=== PATIENT | female | born 1980 | race Caucasian/White ===

== ENCOUNTER 2019-06-17 06:35 | Observation (INO) | payer SELFPAY ==
[2019-06-17] MEDS ORDERED: Adenocard IV 6 MG/2 ML IV ONE (06:49)
[2019-06-17] MEDS ORDERED: Sodium Chloride 0.9% 1000 ML 1,000 ML ONE ×3 (06:49→08:19)
[2019-06-17] MEDS ORDERED: Sodium Chloride 0.9% 1000 ML 1,000 ML IV STA ×3 (06:57→07:33)
[2019-06-17] MEDS ORDERED: FEVERALL 650 MG PR STA (06:58)
[2019-06-17] MEDS ORDERED: FEVERALL 325 MG ONE (06:59)
[2019-06-17] MEDS ORDERED: Zofran 4 MG/2 ML VIAL ONE ×2 (07:02→20:23)
[2019-06-17] MEDS ORDERED: Zofran 4 MG/2 ML VIAL IV ONE (07:02)
--- NOTE | 2019-06-17 07:41 | ERPHSYRPT ---
- History of Present Illness Time Seen by Provider: 06/17/19 07:36 Historian: patient Exam Limitations: no limitations Patient Subjective Stated Complaint: pt states she has been having intermittent abd apin and diarrhea for last 2 weeks. states she has not been able to eat or drink anything for a while because of the pain and vomiting. has had fever tonight. Triage Nursing Assessment: pt awake, answers questions. oriented x4. respirations nonlabored with lungs cta. abd tender with faint bowel sounds. pt states she is passing flatus. skin hot and dry. heart rate 160 on arrival. no c.o chest pain. Physician History: pt states she has been having intermittent abdominal pain and diarrhea for last 2 weeks. states she has not been able to eat or drink anything for a while because of the pain and vomiting. has had fever tonight. Timing/Duration: week(s) (two weeks) Activities at Onset: none Abdominal Pain Onset Location: generalized abdomen Pain Radiation: no radiation Severity of Pain-Max: severe Severity of Pain-Current: severe Modifying Factors: Improves With: nothing Associated Symptoms: diarrhea, loss of appetite, nausea, vomiting, weakness Hx Tetanus, Diphtheria Vaccination/Date Given: Yes Hx Influenza Vaccination/Date Given: No Hx Pneumococcal Vaccination/Date Given: No Immunizations Up to Date: Yes - Review of Systems Constitutional: No Fever, No Chills Eyes: No Symptoms Ears, Nose, & Throat: No Symptoms Respiratory: No Cough, No Dyspnea Cardiac: No Chest Pain, No Edema, No Syncope Abdominal/Gastrointestinal: Abdominal Pain, Nausea, Vomiting, Diarrhea, Appetite Changes Genitourinary Symptoms: No Dysuria Musculoskeletal: No Back Pain, No Neck Pain Skin: No Rash Neurological: No Dizziness, No Focal Weakness, No Sensory Changes Psychological: No Symptoms Endocrine: No Symptoms All Other Systems: Reviewed and Negative - Past Medical History Pertinent Past Medical History: Yes - Past Surgical History Past Surgical History: Yes Gastrointestinal: Appendectomy, Bowel Surgery Female Surgical History: Hysterectomy Other Surgical History: small bowel repair after appy- states the small bowel was knicked and has to be repaired - Social History Smoking Status: Former smoker Exposure to second hand smoke: No Drug Use: none Patient Lives Alone: No - Female History Hx Last Menstrual Period: hyster Hx Now: No - Nursing Vital Signs Nursing Vital Signs: Initial Vital Signs Temperature 103.2 F 06/17/19 06:55 Pulse Rate 149 H 06/17/19 06:55 Respiratory Rate 26 H 06/17/19 06:55 Blood Pressure 134/74 06/17/19 06:55 O2 Sat by Pulse Oximetry 98 06/17/19 06:55 Pain Scale Pain Intensity 9 - Physical Exam General Appearance: no apparent distress, alert Eye Exam: PERRL/EOMI, eyes nml inspection Ears, Nose, Throat Exam: normal ENT inspection, pharynx normal, moist mucous membranes Neck Exam: normal inspection, non-tender, supple, full range of motion Respiratory Exam: normal breath sounds, lungs clear, No respiratory distress Cardiovascular Exam: regular rate/rhythm, normal heart sounds Gastrointestinal/Abdomen Exam: soft, tenderness, No mass Back Exam: normal inspection, normal range of motion, No CVA tenderness, No vertebral tenderness Extremity Exam: normal inspection, normal range of motion, pelvis stable Neurologic Exam: alert, oriented x 3, cooperative, normal mood/affect, nml cerebellar function, sensation nml, No motor deficits Skin Exam: normal color, warm, dry SpO2: 98 - Course Nursing assessment & vital signs reviewed: Yes Ordered Tests: Active Orders 24 hr Category Date Time Status Up Ad Tania ROUTINE Activity 06/17/19 08:37 Active Code Status Order ROUTINE Care 06/17/19 08:36 Active IV Care Q6H Care 06/17/19 08:[address] in Observation ROUTINE Care 06/17/19 08:36 Active Fito Hose, Apply ROUTINE Care 06/17/19 08:36 Active Clear Liquid Diet 06/17/19 Lunch Active AMYLASE Stat Lab 06/17/19 07:55 Completed CBC W DIFF AM.LAB Lab 06/18/19 04:00 Ordered CBC W DIFF Stat Lab 06/17/19 07:55 Completed CMP AM.LAB Lab 06/18/19 04:00 Ordered CMP Stat Lab 06/17/19 07:55 Completed LIPASE Stat Lab 06/17/19 07:55 Completed Lactic Acid AM.LAB Lab 06/18/19 04:00 Ordered Lactic Acid Stat Lab 06/17/19 07:33 Results UA W/RFX UR CULTURE Stat Lab 06/17/19 07:55 Completed Urine Triage Profile Stat Lab 06/17/19 07:55 Completed Medication Summary Generic Name Dose Route Start Last Admin Trade Name Freq PRN Reason Stop Dose Admin Acetaminophen 650 mg 06/17/19 08:36 Tylenol 325 Mg PO 07/17/19 08:35 Q4H PRN PRN PAIN AND/OR FEVER Sodium Chloride 1,000 mls @ 150 mls/hr 06/17/19 08:45 Sodium Chloride 0.9% 1000 Ml IV 07/17/19 08:44 .Q6H40M SALO Ondansetron HCl 4 mg 06/17/19 08:36 Zofran 4 Mg/2 Ml Vial IV 07/17/19 08:35 Q6H PRN PRN NAUSEA/VOMITING Pantoprazole Sodium 40 mg 06/17/19 10:00 Protonix 40 Mg Iv IV 07/17/19 09:59 Q24H10 SALO Discontinued Medications Generic Name Dose Route Start Last Admin Trade Name Freq PRN Reason Stop Dose Admin Acetaminophen 650 mg 06/17/19 06:58 06/17/19 07:14 [place] 650 Mg OH 06/17/19 06:59 650 mg STAT STA Administration Acetaminophen Confirm 06/17/19 06:59 [place] 325 Mg Administered 06/17/19 07:00 Dose 650 mg .ROUTE .STK-MED ONE Adenosine Confirm 06/17/19 06:49 Adenocard Iv 6 Mg/2 Ml Administered 06/17/19 06:50 Dose 6 mg IV .STK-MED ONE Sodium Chloride Confirm 06/17/19 06:49 Sodium Chloride 0.9% 1000 Ml Administered 06/17/19 06:50 Dose 1,000 mls @ ud .ROUTE .STK-MED ONE Sodium Chloride Confirm 06/17/19 06:52 Sodium Chloride 0.9% 1000 Ml Administered 06/17/19 06:53 Dose 1,000 mls @ ud .ROUTE .STK-MED ONE Sodium Chloride 1,000 mls @ 999 mls/hr 06/17/19 06:57 06/17/19 07:59 Sodium Chloride 0.9% 1000 Ml IV 06/17/19 07:57 Infused .Q1H1M STA Infusion Sodium Chloride 1,000 mls @ 999 mls/hr 06/17/19 06:58 06/17/19 07:59 Sodium Chloride 0.9% 1000 Ml IV 06/17/19 07:58 Infused .Q1H1M STA Infusion Sodium Chloride 1,000 mls @ 999 mls/hr 06/17/19 07:33 06/17/19 08:20 Sodium Chloride 0.9% 1000 Ml IV 06/17/19 08:33 999 mls/hr .Q1H1M STA Administration Sodium Chloride Confirm 06/17/19 08:19 Sodium Chloride 0.9% 1000 Ml Administered 06/17/19 08:20 Dose 1,000 mls @ ud .ROUTE .STK-MED ONE Ondansetron HCl 4 mg 06/17/19 07:02 06/17/19 07:15 Zofran 4 Mg/2 Ml Vial IV 06/17/19 07:03 4 mg STAT ONE Administration Ondansetron HCl Confirm 06/17/19 07:02 Zofran 4 Mg/2 Ml Vial Administered 06/17/19 07:03 Dose 4 mg .ROUTE .STK-MED ONE Lab/Rad Data: Laboratory Result Diagrams 06/17/19 07:55 06/17/19 07:55 Laboratory Results 06/17/19 06/17/19 06/17/19 Range/Units 07:55 07:55 07:55 WBC (4.0-10.5) K/mm3 RBC (4.1-5.4) M/mm3 Hgb (12.0-16.0) gm/dl Hct (35-47) % MCV (78-100) fl MCH (26-32) pg MCHC (32-36) g/dl RDW (11.5-14.0) % Plt Count (150-450) K/mm3 MPV (7.5-11.0) fl Gran % (36.0-66.0) % Eos # (Auto) (0-0.5) Absolute Lymphs (auto) (1.0-4.6) Absolute Monos (auto) (0.0-1.3) Lymphocytes % (24.0-44.0) % Monocytes % (0.0-12.0) % Eosinophils % (0.00-5.0) % Basophils % (0.0-0.4) % Absolute Granulocytes (1.4-6.9) Basophils # (0-0.4) Sodium 143 (137-145) mmol/L Potassium 3.9 (3.5-5.1) mmol/L Chloride 110 H (98-107) mmol/L Carbon Dioxide 19 L (22-30) mmol/L Anion Gap 18.4 H (5-15) MEQ/L BUN 11 (7-17) mg/dL Creatinine 0.92 (0.52-1.04) mg/dL Estimated GFR > 60.0 ML/MIN Glucose 109 H (74-106) mg/dL Lactic Acid (0.4-2.0) Calcium 9.2 (8.4-10.2) mg/dL Total Bilirubin 0.40 (0.2-1.3) mg/dL AST 44 H (14-36) U/L ALT 42 H (0-35) U/L Alkaline Phosphatase 98 (38-126) U/L Serum Total Protein 7.3 (6.3-8.2) g/dL Albumin 4.2 (3.5-5.0) g/dL Amylase 59 (30-110) U/L Lipase 88 (23-300) U/L Urine Color STRAW (YELLOW) Urine Appearance CLEAR (CLEAR) Urine pH 6.0 (5-6) Ur Specific [place] 1.008 (1.005-1.025) Urine Protein NEGATIVE (Negative) Urine Ketones NEGATIVE (NEGATIVE) Urine Blood NEGATIVE (0-5) Itz/ul Urine Nitrite NEGATIVE (NEGATIVE) Urine Bilirubin NEGATIVE (NEGATIVE) Urine Urobilinogen NORMAL (0-1) mg/dL Ur Leukocyte Esterase NEGATIVE (NEGATIVE) Urine WBC (Auto) 0-2 (0-5) /HPF Urine RBC (Auto) 0-2 (0-2) /HPF U Hyaline Cast (Auto) 3-5 (0-2) /LPF U Epithel Cells (Auto) FEW (FEW) /HPF Urine Bacteria (Auto) RARE (NEGATIVE) /HPF Urine Mucus (Auto) SLIGHT (NEGATIVE) /HPF Urine Culture Reflexed NO (NO) Urine Glucose NEGATIVE (NEGATIVE) mg/dL Urine Opiates Level NEGATIVE (NEGATIVE) Ur Methadone NEGATIVE (NEGATIVE) Urine Barbiturates NEGATIVE (NEGATIVE) Ur Phencyclidine (PCP) NEGATIVE (NEGATIVE) Urine Amphetamine NEGATIVE (NEGATIVE) U Benzodiazepine Level NEGATIVE (NEGATIVE) Urine Cocaine NEGATIVE (NEGATIVE) Urine Marijuana (THC) NEGATIVE (NEGATIVE) 06/17/19 06/17/19 Range/Units 07:55 07:33 WBC 5.1 (4.0-10.5) K/mm3 RBC 4.39 (4.1-5.4) M/mm3 Hgb 13.9 (12.0-16.0) gm/dl Hct 41.7 (35-47) % MCV 95.0 (78-100) fl MCH 31.7 (26-32) pg MCHC 33.3 (32-36) g/dl RDW 12.8 (11.5-14.0) % Plt Count 186 (150-450) K/mm3 MPV 9.7 H (7.5-11.0) fl Gran % 94.1 H (36.0-66.0) % Eos # (Auto) 0.02 (0-0.5) Absolute Lymphs (auto) 0.24 L (1.0-4.6) Absolute Monos (auto) 0.03 (0.0-1.3) Lymphocytes % 4.7 L (24.0-44.0) % Monocytes % 0.6 (0.0-12.0) % Eosinophils % 0.4 (0.00-5.0) % Basophils % 0.2 (0.0-0.4) % Absolute Granulocytes 4.80 (1.4-6.9) Basophils # 0.01 (0-0.4) Sodium (137-145) mmol/L Potassium (3.5-5.1) mmol/L Chloride (98-107) mmol/L Carbon Dioxide (22-30) mmol/L Anion Gap (5-15) MEQ/L BUN (7-17) mg/dL Creatinine (0.52-1.04) mg/dL Estimated GFR ML/MIN Glucose (74-106) mg/dL Lactic Acid 6.1 H (0.4-2.0) Calcium (8.4-10.2) mg/dL Total Bilirubin (0.2-1.3) mg/dL AST (14-36) U/L ALT (0-35) U/L Alkaline Phosphatase (38-126) U/L Serum Total Protein (6.3-8.2) g/dL Albumin (3.5-5.0) g/dL Amylase (30-110) U/L Lipase (23-300) U/L Urine Color (YELLOW) Urine Appearance (CLEAR) Urine pH (5-6) Ur Specific [place] (1.005-1.025) Urine Protein (Negative) Urine Ketones (NEGATIVE) Urine Blood (0-5) Itz/ul Urine Nitrite (NEGATIVE) Urine Bilirubin (NEGATIVE) Urine Urobilinogen (0-1) mg/dL Ur Leukocyte Esterase (NEGATIVE) Urine WBC (Auto) (0-5) /HPF Urine RBC (Auto) (0-2) /HPF U Hyaline Cast (Auto) (0-2) /LPF U Epithel Cells (Auto) (FEW) /HPF Urine Bacteria (Auto) (NEGATIVE) /HPF Urine Mucus (Auto) (NEGATIVE) /HPF Urine Culture Reflexed (NO) Urine Glucose (NEGATIVE) mg/dL Urine Opiates Level (NEGATIVE) Ur Methadone (NEGATIVE) Urine Barbiturates (NEGATIVE) Ur Phencyclidine (PCP) (NEGATIVE) Urine Amphetamine (NEGATIVE) U Benzodiazepine Level (NEGATIVE) Urine Cocaine (NEGATIVE) Urine Marijuana (THC) (NEGATIVE) - Progress Progress: unchanged Discussed with : Roger Will see patient in: hospital (observation) Counseled pt/family regarding: lab results, diagnosis, need for follow-up - Departure Departure Disposition: Home Clinical Impression: Severe dehydration, Lactic acidosis Condition: Fair Critical Care Time: Yes Critical Care Time(excluding separately billable procedures): Critical 30-74 mins Referrals: DOCTOR,NO FAMILY [Primary Care Provider] -
[2019-06-17 07:57] LABS: BASOPHIL % 0.2 % (0.0-0.4); Basophil (Absolute #) 0.01 (0-0.4); Eosinophil % 0.4 % (0.00-5.0); Eosinophil (Absolute #) 0.02 (0-0.5); Hematocrit 41.7 % (35-47); Hemoglobin 13.9 gm/dl (12.0-16.0); Lymphocyte (Absolute #) 0.24 (1.0-4.6); Lymphocytes % 4.7 % (24.0-44.0); Mean Corpuscular Hemoglobin 31.7 pg (26-32); Mean Corpuscular Hgb Concent. 33.3 g/dl (32-36); Mean Platelet Volume 9.7 fl (7.5-11.0); Monocyte (Absolute #) 0.03 (0.0-1.3); Monocytes % 0.6 % (0.0-12.0); Neutrophil % 94.1 % (36.0-66.0); Platelet Count 186 K/mm3 (150-450); Red Blood Count 4.39 M/mm3 (4.1-5.4); Red Cell Distribution Width 12.8 % (11.5-14.0); White Blood Count 5.1 K/mm3 (4.0-10.5)
[2019-06-17 08:04] LABS: ALBUMIN 4.2 g/dL (3.5-5.0); ALKALINE PHOSPHATASE 98 U/L (38-126); AMYLASE 59 U/L (30-110); ANION GAP 18.4 MEQ/L (5-15); BLOOD UREA NITROGEN 11 mg/dL (7-17); CHLORIDE 110 mmol/L (98-107); Calcium 9.2 mg/dL (8.4-10.2); Carbon Dioxide 19 mmol/L (22-30); Creatinine 1 0.92 mg/dL (0.52-1.04); Glucose 109 mg/dL (74-106); LIPASE 88 U/L (23-300); Potassium 3.9 mmol/L (3.5-5.1); SGOT/AST 44 U/L (14-36); SGPT/ALT 42 U/L (0-35); SODIUM 143 mmol/L (137-145); Total Protein 7.3 g/dL (6.3-8.2)
[2019-06-17 08:05] LABS: Lactic Acid 6.1 (0.4-2.0)
[2019-06-17 08:11] LABS: Bacteria RARE /HPF (NEGATIVE); Mucus SLIGHT /HPF (NEGATIVE); RBC 0-2 /HPF (0-2)
[2019-06-17 08:14] LABS: Appearance CLEAR (CLEAR); Bilirubin NEGATIVE (NEGATIVE); Blood NEGATIVE Ery/ul (0-5); Epithelial Cells FEW /HPF (FEW); Glucose NEGATIVE (NEGATIVE); Ketones NEGATIVE (NEGATIVE); Leukocyte Esterase NEGATIVE (NEGATIVE); Nitrite NEGATIVE (NEGATIVE); Protein,Urine Dip NEGATIVE (Negative); Specific Gravity 1.008 (1.005-1.025); Urobilinogen NORMAL mg/dL (0-1); WBC 0-2 /HPF (0-5)
[2019-06-17 08:16] LABS: Amphetamine,Urine NEGATIVE (NEGATIVE); Barbiturate,Urine NEGATIVE (NEGATIVE); Benzodiazepine,Urine NEGATIVE (NEGATIVE); Cocaine,Urine NEGATIVE (NEGATIVE); Methadone,Urine NEGATIVE (NEGATIVE); Opiate,Urine NEGATIVE (NEGATIVE); PCP,Urine NEGATIVE (NEGATIVE); THC,Urine NEGATIVE (NEGATIVE)
[2019-06-17] MEDS ORDERED: Zofran 4 MG/2 ML VIAL IV PRN ×2 (08:36→09:40)
[2019-06-17] MEDS ORDERED: TYLENOL 325 MG PO PRN ×2 (08:36→09:40)
[2019-06-17] MEDS ORDERED: Sodium Chloride 0.9% 1000 ML 1,000 ML IV SCH ×2 (08:45→09:30)
[2019-06-17 08:54] LABS: Slide Review 1 YES
[2019-06-17] MEDS ORDERED: PROTONIX 40 MG IV IV SCH ×2 (10:00)
--- NOTE | 2019-06-17 10:13 | PCM.HP ---
History of Present Illness - Chief Complaint Chief Complaint: nausea and vomiting and diarrhea for 2 weeks History of Present Illness: is a 38 year old female.pt states she has been having intermittent abdominal pain and diarrhea for last 2 weeks. states she has not been able to eat or drink anything for a while because of the pain and vomiting. has had fever tonight. Timing/Duration: week(s) (two weeks) Activities at Onset: none Abdominal Pain Onset Location: generalized abdomen Pain Radiation: no radiation Severity of Pain-Max: severe Severity of Pain-Current: severe Modifying Factors: Improves With: nothing Associated Symptoms: diarrhea, loss of appetite, nausea, vomiting, weakness Hx Tetanus, Diphtheria Vaccination/Date Given: Yes Hx Influenza Vaccination/Date Given: No Hx Pneumococcal Vaccination/Date Given: No Immunizations Up to Date: Yes - Review of Systems Constitutional: Malaise, Weakness, No Fever, No Chills Eyes: No Symptoms Ears, Nose, & Throat: No Symptoms Respiratory: No Cough, No Short Of Breath Cardiac: No Chest Pain, No Edema, No Syncope Abdominal/Gastrointestinal: Nausea, Vomiting, Diarrhea, No Abdominal Pain Genitourinary Symptoms: No Dysuria Musculoskeletal: No Back Pain, No Neck Pain Skin: No Rash Neurological: No Dizziness, No Focal Weakness, No Sensory Changes Psychological: No Symptoms Endocrine: No Symptoms Hematologic/Lymphatic: No Symptoms Immunological/Allergic: No Symptoms Medications & Allergies Home Medications: Home Medication List Brexpiprazole [Rexulti] 1 mg PO DAILY 06/17/19 [History Confirmed 06/17/19] Trazodone HCl 50 mg [Desyrel 50 mg] 50 mg PO HS 06/17/19 [History Confirmed 06/17/19] Venlafaxine HCl [Venlafaxine HCl ER] 150 mg PO BID 06/17/19 [History Confirmed 06/17/19] Zonisamide 200 mg PO BID 06/17/19 [History Confirmed 06/17/19] Allergies/Adverse Reactions: Allergies Allergy/AdvReac Type Severity Reaction Status Date / Time vancomycin Allergy Verified 06/17/19 08:56 - Past Medical History Past Medical History: Yes - Female History Hx Last Menstrual Period: hyster Are you now?: No - Past Surgical History Past Surgical History: Yes GI Surgical History: Appendectomy, Bowel Surgery Female Surgical History: Hysterectomy Other Surgical History: small bowel repair after appy- states the small bowel was knicked and has to be repaired - Social History Smoking Status: Former smoker Exposure to second hand smoke: No Alcohol: Occasionally Drug Use: none - Physical Exam Vital Signs: Vital Signs - 24 hr Temp Pulse Resp BP Pulse Ox 06/17/19 08:51 97.9 F 127 H 18 92/61 99 06/17/19 08:41 98 06/17/19 07:56 135 H 99 06/17/19 06:55 103.2 F 149 H 26 H 134/74 98 General Appearance: moderate distress, alert Neurologic Exam: alert, oriented x 3, cooperative, normal mood/affect, nml cerebellar function, nml station & gait, sensation nml, No motor deficits Eye Exam: PERRL/EOMI, eyes nml inspection Ears, Nose, Throat Exam: normal ENT inspection, TMs normal, pharynx normal, moist mucous membranes Neck Exam: normal inspection, non-tender, supple, full range of motion Respiratory Exam: normal breath sounds, lungs clear, No respiratory distress Cardiovascular Exam: regular rate/rhythm, normal heart sounds, normal peripheral pulses Gastrointestinal/Abdomen Exam: soft, normal bowel sounds, tenderness, No mass Back Exam: normal inspection, normal range of motion, No CVA tenderness, No vertebral tenderness Extremity Exam: normal inspection, normal range of motion, pelvis stable Skin Exam: normal color, warm, dry, No rash Lymphatic Exam: No adenopathy Results - Labs Lab/Micro Results: Lab Results-Last 24 Hours 06/17/19 06/17/19 06/17/19 Range/Units 07:33 07:55 07:55 WBC 5.1 (4.0-10.5) K/mm3 RBC 4.39 (4.1-5.4) M/mm3 Hgb 13.9 (12.0-16.0) gm/dl Hct 41.7 (35-47) % MCV 95.0 (78-100) fl MCH 31.7 (26-32) pg MCHC 33.3 (32-36) g/dl RDW 12.8 (11.5-14.0) % Plt Count 186 (150-450) K/mm3 MPV 9.7 H (7.5-11.0) fl Gran % 94.1 H (36.0-66.0) % Eos # (Auto) 0.02 (0-0.5) Absolute Lymphs (auto) 0.24 L (1.0-4.6) Absolute Monos (auto) 0.03 (0.0-1.3) Lymphocytes % 4.7 L (24.0-44.0) % Monocytes % 0.6 (0.0-12.0) % Eosinophils % 0.4 (0.00-5.0) % Basophils % 0.2 (0.0-0.4) % Absolute Granulocytes 4.80 (1.4-6.9) Basophils # 0.01 (0-0.4) Sodium 143 (137-145) mmol/L Potassium 3.9 (3.5-5.1) mmol/L Chloride 110 H (98-107) mmol/L Carbon Dioxide 19 L (22-30) mmol/L Anion Gap 18.4 H (5-15) MEQ/L BUN 11 (7-17) mg/dL Creatinine 0.92 (0.52-1.04) mg/dL Estimated GFR > 60.0 ML/MIN Glucose 109 H (74-106) mg/dL Lactic Acid 6.1 H (0.4-2.0) Calcium 9.2 (8.4-10.2) mg/dL Total Bilirubin 0.40 (0.2-1.3) mg/dL AST 44 H (14-36) U/L ALT 42 H (0-35) U/L Alkaline Phosphatase 98 (38-126) U/L Serum Total Protein 7.3 (6.3-8.2) g/dL Albumin 4.2 (3.5-5.0) g/dL Amylase 59 (30-110) U/L Lipase 88 (23-300) U/L Urine Color (YELLOW) Urine Appearance (CLEAR) Urine pH (5-6) Ur Specific [employer] (1.005-1.025) Urine Protein (Negative) Urine Ketones (NEGATIVE) Urine Blood (0-5) Itz/ul Urine Nitrite (NEGATIVE) Urine Bilirubin (NEGATIVE) Urine Urobilinogen (0-1) mg/dL Ur Leukocyte Esterase (NEGATIVE) Urine WBC (Auto) (0-5) /HPF Urine RBC (Auto) (0-2) /HPF U Hyaline Cast (Auto) (0-2) /LPF U Epithel Cells (Auto) (FEW) /HPF Urine Bacteria (Auto) (NEGATIVE) /HPF Urine Mucus (Auto) (NEGATIVE) /HPF Urine Culture Reflexed (NO) Urine Glucose (NEGATIVE) mg/dL Urine Opiates Level (NEGATIVE) Ur Methadone (NEGATIVE) Urine Barbiturates (NEGATIVE) Ur Phencyclidine (PCP) (NEGATIVE) Urine Amphetamine (NEGATIVE) U Benzodiazepine Level (NEGATIVE) Urine Cocaine (NEGATIVE) Urine Marijuana (THC) (NEGATIVE) Slides for Path Review YES 06/17/19 06/17/19 Range/Units 07:55 07:55 WBC (4.0-10.5) K/mm3 RBC (4.1-5.4) M/mm3 Hgb (12.0-16.0) gm/dl Hct (35-47) % MCV (78-100) fl MCH (26-32) pg MCHC (32-36) g/dl RDW (11.5-14.0) % Plt Count (150-450) K/mm3 MPV (7.5-11.0) fl Gran % (36.0-66.0) % Eos # (Auto) (0-0.5) Absolute Lymphs (auto) (1.0-4.6) Absolute Monos (auto) (0.0-1.3) Lymphocytes % (24.0-44.0) % Monocytes % (0.0-12.0) % Eosinophils % (0.00-5.0) % Basophils % (0.0-0.4) % Absolute Granulocytes (1.4-6.9) Basophils # (0-0.4) Sodium (137-145) mmol/L Potassium (3.5-5.1) mmol/L Chloride (98-107) mmol/L Carbon Dioxide (22-30) mmol/L Anion Gap (5-15) MEQ/L BUN (7-17) mg/dL Creatinine (0.52-1.04) mg/dL Estimated GFR ML/MIN Glucose (74-106) mg/dL Lactic Acid (0.4-2.0) Calcium (8.4-10.2) mg/dL Total Bilirubin (0.2-1.3) mg/dL AST (14-36) U/L ALT (0-35) U/L Alkaline Phosphatase (38-126) U/L Serum Total Protein (6.3-8.2) g/dL Albumin (3.5-5.0) g/dL Amylase (30-110) U/L Lipase (23-300) U/L Urine Color STRAW (YELLOW) Urine Appearance CLEAR (CLEAR) Urine pH 6.0 (5-6) Ur Specific [employer] 1.008 (1.005-1.025) Urine Protein NEGATIVE (Negative) Urine Ketones NEGATIVE (NEGATIVE) Urine Blood NEGATIVE (0-5) Itz/ul Urine Nitrite NEGATIVE (NEGATIVE) Urine Bilirubin NEGATIVE (NEGATIVE) Urine Urobilinogen NORMAL (0-1) mg/dL Ur Leukocyte Esterase NEGATIVE (NEGATIVE) Urine WBC (Auto) 0-2 (0-5) /HPF Urine RBC (Auto) 0-2 (0-2) /HPF U Hyaline Cast (Auto) 3-5 (0-2) /LPF U Epithel Cells (Auto) FEW (FEW) /HPF Urine Bacteria (Auto) RARE (NEGATIVE) /HPF Urine Mucus (Auto) SLIGHT (NEGATIVE) /HPF Urine Culture Reflexed NO (NO) Urine Glucose NEGATIVE (NEGATIVE) mg/dL Urine Opiates Level NEGATIVE (NEGATIVE) Ur Methadone NEGATIVE (NEGATIVE) Urine Barbiturates NEGATIVE (NEGATIVE) Ur Phencyclidine (PCP) NEGATIVE (NEGATIVE) Urine Amphetamine NEGATIVE (NEGATIVE) U Benzodiazepine Level NEGATIVE (NEGATIVE) Urine Cocaine NEGATIVE (NEGATIVE) Urine Marijuana (THC) NEGATIVE (NEGATIVE) Slides for Path Review Assessment/Plan (1) Severe dehydration Current Visit: Yes Status: Acute Assessment & Plan: Last Vital Signs Temp 97.9 F 06/17/19 08:51 Pulse 127 H 06/17/19 08:51 Resp 18 06/17/19 08:51 BP 92/61 06/17/19 08:51 Pulse Ox 99 06/17/19 08:51 Allergies vancomycin Allergy (Verified 06/17/19 08:56) Active Medications Acetaminophen (Tylenol 325 Mg) 650 mg PO Q4H PRN PRN PRN Reason: PAIN AND/OR FEVER Stop: 07/17/19 08:35 Sodium Chloride (Sodium Chloride 0.9% 1000 Ml) 1,000 mls @ 150 mls/hr IV .Q6H40M SALO Stop: 07/17/19 08:44 Ondansetron HCl (Zofran 4 Mg/2 Ml Vial) 4 mg IV Q6H PRN PRN PRN Reason: NAUSEA/VOMITING Stop: 07/17/19 08:35 Pantoprazole Sodium (Protonix 40 Mg Iv) 40 mg IV Q24H10 SALO Stop: 07/17/19 09:59 Intake & Output 06/16/19 06/17/19 11:59 11:59 Weight 68.039 kg Orders 06/17/19 08:36 Code Status Order ROUTINE IV Care Q6H Place in Observation ROUTINE Fito BangCliff ROUTINE 06/17/19 08:37 Up Ad Tania ROUTINE 06/17/19 09:40 Acetaminophen 325 mg [Tylenol 325 mg] 650 mg PO Q4H PRN PRN 06/17/19 09:45 NaCl 0.9% 1000 ml [Sodium Chloride 0.9% 1000 ML] 1,000 ml IV 150 mls/hr 06/17/19 10:00 Pantoprazole 40 mg [Protonix 40 mg IV] 40 mg IV Q24H10 06/17/19 10:05 Lactic Acid Stat 06/18/19 09:40 Ondansetron HCl 4 mg/2 ml [Zofran 4 MG/2 ML VIAL] 4 mg IV Q6H PRN PRN Lab Tests 06/17/19 06/17/19 06/17/19 07:33 07:55 07:55 WBC 5.1 RBC 4.39 Hgb 13.9 Hct 41.7 MCV 95.0 MCH 31.7 MCHC 33.3 RDW 12.8 Plt Count 186 MPV 9.7 H Gran % 94.1 H Eos # (Auto) 0.02 Absolute Lymphs (auto) 0.24 L Absolute Monos (auto) 0.03 Lymphocytes % 4.7 L Monocytes % 0.6 Eosinophils % 0.4 Basophils % 0.2 Absolute Granulocytes 4.80 Basophils # 0.01 Sodium 143 Potassium 3.9 Chloride 110 H Carbon Dioxide 19 L Anion Gap 18.4 H BUN 11 Creatinine 0.92 Estimated GFR > 60.0 Glucose 109 H Lactic Acid 6.1 H Calcium 9.2 Total Bilirubin 0.40 AST 44 H ALT 42 H Alkaline Phosphatase 98 Serum Total Protein 7.3 Albumin 4.2 Amylase 59 Lipase 88 Urine Color Urine Appearance Urine pH Ur Specific [employer] Urine Protein Urine Ketones Urine Blood Urine Nitrite Urine Bilirubin Urine Urobilinogen Ur Leukocyte Esterase Urine WBC (Auto) Urine RBC (Auto) U Hyaline Cast (Auto) U Epithel Cells (Auto) Urine Bacteria (Auto) Urine Mucus (Auto) Urine Culture Reflexed Urine Glucose Urine Opiates Level Ur Methadone Urine Barbiturates Ur Phencyclidine (PCP) Urine Amphetamine U Benzodiazepine Level Urine Cocaine Urine Marijuana (THC) Slides for Path Review YES 06/17/19 06/17/19 07:55 07:55 WBC RBC Hgb Hct MCV MCH MCHC RDW Plt Count MPV Gran % Eos # (Auto) Absolute Lymphs (auto) Absolute Monos (auto) Lymphocytes % Monocytes % Eosinophils % Basophils % Absolute Granulocytes Basophils # Sodium Potassium Chloride Carbon Dioxide Anion Gap BUN Creatinine Estimated GFR Glucose Lactic Acid Calcium Total Bilirubin AST ALT Alkaline Phosphatase Serum Total Protein Albumin Amylase Lipase Urine Color STRAW Urine Appearance CLEAR Urine pH 6.0 Ur Specific [employer] 1.008 Urine Protein NEGATIVE Urine Ketones NEGATIVE Urine Blood NEGATIVE Urine Nitrite NEGATIVE Urine Bilirubin NEGATIVE Urine Urobilinogen NORMAL Ur Leukocyte Esterase NEGATIVE Urine WBC (Auto) 0-2 Urine RBC (Auto) 0-2 U Hyaline Cast (Auto) 3-5 U Epithel Cells (Auto) FEW Urine Bacteria (Auto) RARE Urine Mucus (Auto) SLIGHT Urine Culture Reflexed NO Urine Glucose NEGATIVE Urine Opiates Level NEGATIVE Ur Methadone NEGATIVE Urine Barbiturates NEGATIVE Ur Phencyclidine (PCP) NEGATIVE Urine Amphetamine NEGATIVE U Benzodiazepine Level NEGATIVE Urine Cocaine NEGATIVE Urine Marijuana (THC) NEGATIVE Slides for Path Review Code(s): E86.0 - DEHYDRATION (2) Lactic acidosis Current Visit: Yes Status: Acute Assessment & Plan: Abnormal Lab Results 06/17/19 06/17/19 06/17/19 Range/Units 07:33 07:55 07:55 MPV 9.7 H (7.5-11.0) fl Gran % 94.1 H (36.0-66.0) % Absolute Lymphs (auto) 0.24 L (1.0-4.6) Lymphocytes % 4.7 L (24.0-44.0) % Chloride 110 H (98-107) mmol/L Carbon Dioxide 19 L (22-30) mmol/L Anion Gap 18.4 H (5-15) MEQ/L Glucose 109 H (74-106) mg/dL Lactic Acid 6.1 H (0.4-2.0) AST 44 H (14-36) U/L ALT 42 H (0-35) U/L Code(s): E87.2 - ACIDOSIS
[2019-06-17] MEDS: TYLENOL 325 MG PO PRN ×3 (11:57→21:16)
[2019-06-17] MEDS: PROTONIX 40 MG IV IV SCH (11:57)
[2019-06-17] MEDS ORDERED: MEDICATION INTERVENTION MC SCH (12:15)
[2019-06-17] MEDS: Effexor XR 75 MG PO SCH ×2 (12:58→21:17)
[2019-06-17] MEDS: ROCEPHIN 1 Gm-D5w 50 ml Bag** 1 G/50 ML IVPB IV SCH (12:59)
[2019-06-17] MEDS: ZONISAMIDE PO SCH ×2 (15:13→21:17)
[2019-06-17] MEDS: Zofran 4 MG/2 ML VIAL IV PRN (20:26)
[2019-06-17] MEDS: DESYREL 50 MG PO SCH (21:17)
[2019-06-17] MEDS ORDERED: NON-FORMULARY ITEM (Venlafaxine Hcl [Venlafaxine Hcl Er] 150 MG) PO SCH (22:00)
[2019-06-18] MEDS: Sodium Chloride 0.9% 1000 ML 1,000 ML IV SCH ×2 (01:10→08:01)
[2019-06-18] MEDS: TYLENOL 325 MG PO PRN (04:12)
[2019-06-18 05:10] LABS: Hemoglobin 10.2 gm/dl (12.0-16.0); Mean Cell Volume 96.3 fl (78-100); Mean Corpuscular Hemoglobin 31.7 pg (26-32); Mean Corpuscular Hgb Concent. 32.9 g/dl (32-36); Mean Platelet Volume 9.5 fl (7.5-11.0); Platelet Count 107 K/mm3 (150-450); Red Blood Count 3.22 M/mm3 (4.1-5.4); Red Cell Distribution Width 12.9 % (11.5-14.0); White Blood Count 20.7 K/mm3 (4.0-10.5)
[2019-06-18 05:25] LABS: ALBUMIN 2.7 g/dL (3.5-5.0); ALKALINE PHOSPHATASE 62 U/L (38-126); AMYLASE 41 U/L (30-110); ANION GAP 7.6 MEQ/L (5-15); BLOOD UREA NITROGEN 10 mg/dL (7-17); CHLORIDE 112 mmol/L (98-107); Calcium 7.3 mg/dL (8.4-10.2); Carbon Dioxide 21 mmol/L (22-30); Creatinine 1 0.68 mg/dL (0.52-1.04); Glucose 106 mg/dL (74-106); LIPASE 16 U/L (23-300); Potassium 3.2 mmol/L (3.5-5.1); SGOT/AST 27 U/L (14-36); SGPT/ALT 31 U/L (0-35); SODIUM 138 mmol/L (137-145); Total Protein 5.6 g/dL (6.3-8.2)
--- NOTE | 2019-06-18 06:01 | PCM.NOTE ---
Date and Time: 06/18/19 0558 Subjective Assessment: still very weak, c/o diarrhea - Review of Systems Constitutional: Fatigue, Lethargy, Malaise, Weakness, No Fever, No Chills Eyes: No Symptoms Ears, Nose, & Throat: No Symptoms Respiratory: No Cough, No Short Of Breath Cardiac: No Chest Pain, No Edema, No Syncope Abdominal/Gastrointestinal: Nausea, Diarrhea, Appetite Changes, No Abdominal Pain, No Vomiting Genitourinary Symptoms: No Dysuria Musculoskeletal: No Back Pain, No Neck Pain Skin: No Rash Neurological: No Dizziness, No Focal Weakness, No Sensory Changes Psychological: No Symptoms Endocrine: No Symptoms Hematologic/Lymphatic: No Symptoms Immunological/Allergic: No Symptoms Objective Exam General Appearance: no apparent distress, alert Neurologic Exam: alert, oriented x 3, cooperative, normal mood/affect, nml cerebellar function, sensation nml, No motor deficits Skin Exam: normal color, warm, dry Eye Exam: PERRL, EOMI, eyes nml inspection Ears, Nose, Throat Exam: normal ENT inspection, pharynx normal, moist mucous membranes Neck Exam: normal inspection, non-tender, supple, full range of motion Respiratory Exam: normal breath sounds, lungs clear, No respiratory distress Cardiovascular Exam: regular rate/rhythm, normal heart sounds Gastrointestinal/Abdomen Exam: soft, normal bowel sounds, tenderness ( generalised), No mass, No guarding Extremity Exam: normal inspection, normal range of motion Back Exam: normal inspection, normal range of motion, No CVA tenderness, No vertebral tenderness Pelvic Exam: deferred Rectal Exam: deferred OBJECTIVE DATA Vital Signs: Vital Signs - 24 hr Temp Pulse Resp BP Pulse Ox 06/18/19 04:00 98.5 F 101 H 17 95/51 94 L 06/17/19 23:57 97.9 F 90 20 90/53 96 06/17/19 20:09 97.5 F 98 H 16 95/57 97 06/17/19 16:00 98.1 F 110 H 16 103/54 94 L 06/17/19 12:00 98.1 F 118 H 18 105/51 95 06/17/19 11:05 97.5 F 123 H 12 102/56 95 06/17/19 09:54 97.5 F 123 H 18 102/56 99 06/17/19 08:51 97.9 F 127 H 18 92/61 99 06/17/19 08:41 98 06/17/19 07:56 135 H 99 06/17/19 06:55 103.2 F 149 H 26 H 134/74 98 Pain Assessment - Last Documented Pain Intensity 8 Pain Scale Used 0-10 Pain Scale Intake and Output: Intake & Output 06/15/19 06/16/19 06/17/19 06/18/19 11:59 11:59 11:59 11:59 Intake Total 3540 2205 Output Total 1800 Balance 3540 405 Weight 72.1 kg Lab Results: Lab Results-Last 24 Hours 06/17/19 06/17/19 06/17/19 Range/Units 07:33 07:55 07:55 WBC 5.1 (4.0-10.5) K/mm3 RBC 4.39 (4.1-5.4) M/mm3 Hgb 13.9 (12.0-16.0) gm/dl Hct 41.7 (35-47) % MCV 95.0 (78-100) fl MCH 31.7 (26-32) pg MCHC 33.3 (32-36) g/dl RDW 12.8 (11.5-14.0) % Plt Count 186 (150-450) K/mm3 MPV 9.7 H (7.5-11.0) fl Gran % 94.1 H (36.0-66.0) % Eos # (Auto) 0.02 (0-0.5) Absolute Lymphs (auto) 0.24 L (1.0-4.6) Absolute Monos (auto) 0.03 (0.0-1.3) Lymphocytes % 4.7 L (24.0-44.0) % Monocytes % 0.6 (0.0-12.0) % Eosinophils % 0.4 (0.00-5.0) % Basophils % 0.2 (0.0-0.4) % Absolute Granulocytes 4.80 (1.4-6.9) Basophils # 0.01 (0-0.4) Sodium 143 (137-145) mmol/L Potassium 3.9 (3.5-5.1) mmol/L Chloride 110 H (98-107) mmol/L Carbon Dioxide 19 L (22-30) mmol/L Anion Gap 18.4 H (5-15) MEQ/L BUN 11 (7-17) mg/dL Creatinine 0.92 (0.52-1.04) mg/dL Estimated GFR > 60.0 ML/MIN Glucose 109 H (74-106) mg/dL Lactic Acid 6.1 H (0.4-2.0) Calcium 9.2 (8.4-10.2) mg/dL Total Bilirubin 0.40 (0.2-1.3) mg/dL AST 44 H (14-36) U/L ALT 42 H (0-35) U/L Alkaline Phosphatase 98 (38-126) U/L Serum Total Protein 7.3 (6.3-8.2) g/dL Albumin 4.2 (3.5-5.0) g/dL Amylase 59 (30-110) U/L Lipase 88 (23-300) U/L Urine Color (YELLOW) Urine Appearance (CLEAR) Urine pH (5-6) Ur Specific [place] (1.005-1.025) Urine Protein (Negative) Urine Ketones (NEGATIVE) Urine Blood (0-5) Itz/ul Urine Nitrite (NEGATIVE) Urine Bilirubin (NEGATIVE) Urine Urobilinogen (0-1) mg/dL Ur Leukocyte Esterase (NEGATIVE) Urine WBC (Auto) (0-5) /HPF Urine RBC (Auto) (0-2) /HPF U Hyaline Cast (Auto) (0-2) /LPF U Epithel Cells (Auto) (FEW) /HPF Urine Bacteria (Auto) (NEGATIVE) /HPF Urine Mucus (Auto) (NEGATIVE) /HPF Urine Culture Reflexed (NO) Urine Glucose (NEGATIVE) mg/dL Urine Opiates Level (NEGATIVE) Ur Methadone (NEGATIVE) Urine Barbiturates (NEGATIVE) Ur Phencyclidine (PCP) (NEGATIVE) Urine Amphetamine (NEGATIVE) U Benzodiazepine Level (NEGATIVE) Urine Cocaine (NEGATIVE) Urine Marijuana (THC) (NEGATIVE) Slides for Path Review YES 06/17/19 06/17/19 06/17/19 Range/Units 07:55 07:55 10:05 WBC (4.0-10.5) K/mm3 RBC (4.1-5.4) M/mm3 Hgb (12.0-16.0) gm/dl Hct (35-47) % MCV (78-100) fl MCH (26-32) pg MCHC (32-36) g/dl RDW (11.5-14.0) % Plt Count (150-450) K/mm3 MPV (7.5-11.0) fl Gran % (36.0-66.0) % Eos # (Auto) (0-0.5) Absolute Lymphs (auto) (1.0-4.6) Absolute Monos (auto) (0.0-1.3) Lymphocytes % (24.0-44.0) % Monocytes % (0.0-12.0) % Eosinophils % (0.00-5.0) % Basophils % (0.0-0.4) % Absolute Granulocytes (1.4-6.9) Basophils # (0-0.4) Sodium (137-145) mmol/L Potassium (3.5-5.1) mmol/L Chloride (98-107) mmol/L Carbon Dioxide (22-30) mmol/L Anion Gap (5-15) MEQ/L BUN (7-17) mg/dL Creatinine (0.52-1.04) mg/dL Estimated GFR ML/MIN Glucose (74-106) mg/dL Lactic Acid 5.0 H (0.4-2.0) Calcium (8.4-10.2) mg/dL Total Bilirubin (0.2-1.3) mg/dL AST (14-36) U/L ALT (0-35) U/L Alkaline Phosphatase (38-126) U/L Serum Total Protein (6.3-8.2) g/dL Albumin (3.5-5.0) g/dL Amylase (30-110) U/L Lipase (23-300) U/L Urine Color STRAW (YELLOW) Urine Appearance CLEAR (CLEAR) Urine pH 6.0 (5-6) Ur Specific [place] 1.008 (1.005-1.025) Urine Protein NEGATIVE (Negative) Urine Ketones NEGATIVE (NEGATIVE) Urine Blood NEGATIVE (0-5) Itz/ul Urine Nitrite NEGATIVE (NEGATIVE) Urine Bilirubin NEGATIVE (NEGATIVE) Urine Urobilinogen NORMAL (0-1) mg/dL Ur Leukocyte Esterase NEGATIVE (NEGATIVE) Urine WBC (Auto) 0-2 (0-5) /HPF Urine RBC (Auto) 0-2 (0-2) /HPF U Hyaline Cast (Auto) 3-5 (0-2) /LPF U Epithel Cells (Auto) FEW (FEW) /HPF Urine Bacteria (Auto) RARE (NEGATIVE) /HPF Urine Mucus (Auto) SLIGHT (NEGATIVE) /HPF Urine Culture Reflexed NO (NO) Urine Glucose NEGATIVE (NEGATIVE) mg/dL Urine Opiates Level NEGATIVE (NEGATIVE) Ur Methadone NEGATIVE (NEGATIVE) Urine Barbiturates NEGATIVE (NEGATIVE) Ur Phencyclidine (PCP) NEGATIVE (NEGATIVE) Urine Amphetamine NEGATIVE (NEGATIVE) U Benzodiazepine Level NEGATIVE (NEGATIVE) Urine Cocaine NEGATIVE (NEGATIVE) Urine Marijuana (THC) NEGATIVE (NEGATIVE) Slides for Path Review 06/18/19 06/18/19 06/18/19 Range/Units 05:07 05:07 05:39 WBC 20.7 H (4.0-10.5) K/mm3 RBC 3.22 L (4.1-5.4) M/mm3 Hgb 10.2 L D (12.0-16.0) gm/dl Hct 31.0 L (35-47) % MCV 96.3 (78-100) fl MCH 31.7 (26-32) pg MCHC 32.9 (32-36) g/dl RDW 12.9 (11.5-14.0) % Plt Count 107 L D (150-450) K/mm3 MPV 9.5 (7.5-11.0) fl Gran % (36.0-66.0) % Eos # (Auto) (0-0.5) Absolute Lymphs (auto) (1.0-4.6) Absolute Monos (auto) (0.0-1.3) Lymphocytes % (24.0-44.0) % Monocytes % (0.0-12.0) % Eosinophils % (0.00-5.0) % Basophils % (0.0-0.4) % Absolute Granulocytes (1.4-6.9) Basophils # (0-0.4) Sodium 138 (137-145) mmol/L Potassium 3.2 L (3.5-5.1) mmol/L Chloride 112 H (98-107) mmol/L Carbon Dioxide 21 L (22-30) mmol/L Anion Gap 7.6 (5-15) MEQ/L BUN 10 (7-17) mg/dL Creatinine 0.68 (0.52-1.04) mg/dL Estimated GFR > 60.0 ML/MIN Glucose 106 (74-106) mg/dL Lactic Acid 1.2 (0.4-2.0) Calcium 7.3 L D (8.4-10.2) mg/dL Total Bilirubin 0.40 (0.2-1.3) mg/dL AST 27 (14-36) U/L ALT 31 (0-35) U/L Alkaline Phosphatase 62 (38-126) U/L Serum Total Protein 5.6 L (6.3-8.2) g/dL Albumin 2.7 L (3.5-5.0) g/dL Amylase 41 (30-110) U/L Lipase 16 L (23-300) U/L Urine Color (YELLOW) Urine Appearance (CLEAR) Urine pH (5-6) Ur Specific [place] (1.005-1.025) Urine Protein (Negative) Urine Ketones (NEGATIVE) Urine Blood (0-5) Itz/ul Urine Nitrite (NEGATIVE) Urine Bilirubin (NEGATIVE) Urine Urobilinogen (0-1) mg/dL Ur Leukocyte Esterase (NEGATIVE) Urine WBC (Auto) (0-5) /HPF Urine RBC (Auto) (0-2) /HPF U Hyaline Cast (Auto) (0-2) /LPF U Epithel Cells (Auto) (FEW) /HPF Urine Bacteria (Auto) (NEGATIVE) /HPF Urine Mucus (Auto) (NEGATIVE) /HPF Urine Culture Reflexed (NO) Urine Glucose (NEGATIVE) mg/dL Urine Opiates Level (NEGATIVE) Ur Methadone (NEGATIVE) Urine Barbiturates (NEGATIVE) Ur Phencyclidine (PCP) (NEGATIVE) Urine Amphetamine (NEGATIVE) U Benzodiazepine Level (NEGATIVE) Urine Cocaine (NEGATIVE) Urine Marijuana (THC) (NEGATIVE) Slides for Path Review Assessment/Plan (1) Severe dehydration Current Visit: Yes Status: Acute Assessment & Plan: Last Vital Signs Temp 98.5 F 06/18/19 04:00 Pulse 101 H 06/18/19 04:00 Resp 17 06/18/19 04:00 BP 95/51 06/18/19 04:00 Pulse Ox 94 L 06/18/19 04:00 Allergies black pepper Allergy (Severe, Verified 06/17/19 14:24) shellfish derived Allergy (Severe, Verified 06/17/19 14:23) Milk Containing Products Allergy (Intermediate, Verified 06/17/19 14:22) vancomycin Allergy (Verified 06/17/19 08:56) Active Medications Acetaminophen (Tylenol 325 Mg) 650 mg PO Q4H PRN PRN PRN Reason: PAIN AND/OR FEVER Stop: 07/17/19 08:35 Last Admin: 06/18/19 04:12 Dose: 650 mg Sodium Chloride (Sodium Chloride 0.9% 1000 Ml) 1,000 mls @ 150 mls/hr IV .Q6H40M [facility] Stop: 07/17/19 08:44 Last Admin: 06/18/19 01:10 Dose: 150 mls/hr Ceftriaxone Sodium/Dextrose (Rocephin 1 Gm-D5w 50 Ml Bag) 1 g in 50 mls @ 100 mls/hr IV Q24H10 [facility] Stop: 07/17/19 12:14 Last Admin: 06/17/19 12:59 Dose: 100 mls/hr Miscellaneous Information (Medication Intervention) 0 each MC .RN TO CHECK WITH PT [facility] Stop: 07/17/19 12:14 Non-Formulary Medication (Zonisamide) 0 mg PO BID [facility] Stop: 07/17/19 12:29 Last Admin: 06/17/19 21:17 Dose: 200 mg Ondansetron HCl (Zofran 4 Mg/2 Ml Vial) 4 mg IV Q6H PRN PRN PRN Reason: NAUSEA/VOMITING Stop: 07/17/19 08:35 Last Admin: 06/17/19 20:26 Dose: 4 mg Pantoprazole Sodium (Protonix 40 Mg Iv) 40 mg IV Q24H10 [facility] Stop: 07/17/19 09:59 Last Admin: 06/17/19 11:57 Dose: 40 mg Trazodone HCl (Desyrel 50 Mg) 50 mg PO HS [facility] Stop: 07/17/19 21:59 Last Admin: 06/17/19 21:17 Dose: 50 mg Venlafaxine HCl (Effexor Xr 75 Mg) 150 mg PO BID [facility] Stop: 07/17/19 12:14 Last Admin: 06/17/19 21:17 Dose: 150 mg Intake & Output 06/17/19 06/18/19 11:59 11:59 Intake Total 3540 2205 Output Total 1800 Balance 3540 405 Weight 72.1 kg Orders 06/17/19 08:36 Code Status Order ROUTINE Place in Observation ROUTINE Fito Bang, [place] ROUTINE 06/17/19 08:37 Up Ad Tania ROUTINE 06/17/19 09:40 Acetaminophen 325 mg [Tylenol 325 mg] 650 mg PO Q4H PRN PRN 06/17/19 09:45 NaCl 0.9% 1000 ml [Sodium Chloride 0.9% 1000 ML] 1,000 ml IV 150 mls/hr 06/17/19 10:00 Pantoprazole 40 mg [Protonix 40 mg IV] 40 mg IV Q24H10 06/17/19 12:15 Ceftriaxone 1 GM/50 ML PREMIX* [ROCEPHIN 1 Gm-D5w 50 ml Bag] 1 g in 50 ml IV Q24H10 Medication Intervention 0 each MC .RN TO CHECK WITH PT Venlafaxine HCl ER 75 mg [Effexor XR 75 MG] 150 mg PO BID 06/17/19 12:30 Zonisamide 0 mg PO BID 06/17/19 22:00 Trazodone HCl 50 mg [Desyrel 50 mg] 50 mg PO HS 06/17/19 22:16 Telemetry q6h 06/17/19 23:00 GI PANEL Urgent 06/17/19 Lunch Clear Liquid 06/18/19 09:40 Ondansetron HCl 4 mg/2 ml [Zofran 4 MG/2 ML VIAL] 4 mg IV Q6H PRN PRN Lab Tests 06/17/19 06/17/19 06/17/19 07:33 07:55 07:55 WBC 5.1 RBC 4.39 Hgb 13.9 Hct 41.7 MCV 95.0 MCH 31.7 MCHC 33.3 RDW 12.8 Plt Count 186 MPV 9.7 H Gran % 94.1 H Eos # (Auto) 0.02 Absolute Lymphs (auto) 0.24 L Absolute Monos (auto) 0.03 Lymphocytes % 4.7 L Monocytes % 0.6 Eosinophils % 0.4 Basophils % 0.2 Absolute Granulocytes 4.80 Basophils # 0.01 Sodium 143 Potassium 3.9 Chloride 110 H Carbon Dioxide 19 L Anion Gap 18.4 H BUN 11 Creatinine 0.92 Estimated GFR > 60.0 Glucose 109 H Lactic Acid 6.1 H Calcium 9.2 Total Bilirubin 0.40 AST 44 H ALT 42 H Alkaline Phosphatase 98 Serum Total Protein 7.3 Albumin 4.2 Amylase 59 Lipase 88 Urine Color Urine Appearance Urine pH Ur Specific [place] Urine Protein Urine Ketones Urine Blood Urine Nitrite Urine Bilirubin Urine Urobilinogen Ur Leukocyte Esterase Urine WBC (Auto) Urine RBC (Auto) U Hyaline Cast (Auto) U Epithel Cells (Auto) Urine Bacteria (Auto) Urine Mucus (Auto) Urine Culture Reflexed Urine Glucose Urine Opiates Level Ur Methadone Urine Barbiturates Ur Phencyclidine (PCP) Urine Amphetamine U Benzodiazepine Level Urine Cocaine Urine Marijuana (THC) Slides for Path Review YES 06/17/19 06/17/19 06/17/19 07:55 07:55 10:05 WBC RBC Hgb Hct MCV MCH MCHC RDW Plt Count MPV Gran % Eos # (Auto) Absolute Lymphs (auto) Absolute Monos (auto) Lymphocytes % Monocytes % Eosinophils % Basophils % Absolute Granulocytes Basophils # Sodium Potassium Chloride Carbon Dioxide Anion Gap BUN Creatinine Estimated GFR Glucose Lactic Acid 5.0 H Calcium Total Bilirubin AST ALT Alkaline Phosphatase Serum Total Protein Albumin Amylase Lipase Urine Color STRAW Urine Appearance CLEAR Urine pH 6.0 Ur Specific [place] 1.008 Urine Protein NEGATIVE Urine Ketones NEGATIVE Urine Blood NEGATIVE Urine Nitrite NEGATIVE Urine Bilirubin NEGATIVE Urine Urobilinogen NORMAL Ur Leukocyte Esterase NEGATIVE Urine WBC (Auto) 0-2 Urine RBC (Auto) 0-2 U Hyaline Cast (Auto) 3-5 U Epithel Cells (Auto) FEW Urine Bacteria (Auto) RARE Urine Mucus (Auto) SLIGHT Urine Culture Reflexed NO Urine Glucose NEGATIVE Urine Opiates Level NEGATIVE Ur Methadone NEGATIVE Urine Barbiturates NEGATIVE Ur Phencyclidine (PCP) NEGATIVE Urine Amphetamine NEGATIVE U Benzodiazepine Level NEGATIVE Urine Cocaine NEGATIVE Urine Marijuana (THC) NEGATIVE Slides for Path Review 06/18/19 06/18/19 06/18/19 05:07 05:07 05:39 WBC 20.7 H RBC 3.22 L Hgb 10.2 L D Hct 31.0 L MCV 96.3 MCH 31.7 MCHC 32.9 RDW 12.9 Plt Count 107 L D MPV 9.5 Gran % Eos # (Auto) Absolute Lymphs (auto) Absolute Monos (auto) Lymphocytes % Monocytes % Eosinophils % Basophils % Absolute Granulocytes Basophils # Sodium 138 Potassium 3.2 L Chloride 112 H Carbon Dioxide 21 L Anion Gap 7.6 BUN 10 Creatinine 0.68 Estimated GFR > 60.0 Glucose 106 Lactic Acid 1.2 Calcium 7.3 L D Total Bilirubin 0.40 AST 27 ALT 31 Alkaline Phosphatase 62 Serum Total Protein 5.6 L Albumin 2.7 L Amylase 41 Lipase 16 L Urine Color Urine Appearance Urine pH Ur Specific [place] Urine Protein Urine Ketones Urine Blood Urine Nitrite Urine Bilirubin Urine Urobilinogen Ur Leukocyte Esterase Urine WBC (Auto) Urine RBC (Auto) U Hyaline Cast (Auto) U Epithel Cells (Auto) Urine Bacteria (Auto) Urine Mucus (Auto) Urine Culture Reflexed Urine Glucose Urine Opiates Level Ur Methadone Urine Barbiturates Ur Phencyclidine (PCP) Urine Amphetamine U Benzodiazepine Level Urine Cocaine Urine Marijuana (THC) Slides for Path Review Code(s): E86.0 - DEHYDRATION (2) Lactic acidosis Current Visit: Yes Status: Acute Code(s): E87.2 - ACIDOSIS (3) Hypokalemia due to excessive gastrointestinal loss of potassium Current Visit: Yes Status: Acute Assessment & Plan: will replace k Code(s): E87.6 - HYPOKALEMIA
[2019-06-18] MEDS: POTASSIUM CHLORIDE 20 mEq IN WATER 100ML 20 MEQ/100 ML BAG IV SCH ×2 (06:26→08:36)
[2019-06-18 06:28] LABS: BAND 14 % (0.0-2.0); Lymphocytes 4 % (24-44); Monocyte 3 % (0.0-12.0); Neutrophils 79 % (36.0-66.0); Total Cells Counted 100
[2019-06-18 06:29] LABS: Toxic Granulation 1+
[2019-06-18 06:32] LABS: Dohle Bodies 1+
[2019-06-18 06:34] LABS: Platelet Estimate NORMAL (NORMAL)
[2019-06-18] MEDS: TORAdol 30 mg Injection IV PRN ×2 (07:46→20:57)
[2019-06-18] MEDS: Zofran 4 MG/2 ML VIAL IV PRN ×2 (07:58→20:33)
[2019-06-18] MEDS: Pepcid 20 MG VIAL IV SCH ×2 (08:44→20:56)
[2019-06-18] MEDS: PROTONIX 40 MG IV IV SCH (08:44)
[2019-06-18] MEDS: ROCEPHIN 1 Gm-D5w 50 ml Bag** 1 G/50 ML IVPB IV SCH (08:44)
[2019-06-18] MEDS: Effexor XR 75 MG PO SCH ×2 (08:44→20:55)
[2019-06-18] MEDS: ZONISAMIDE PO SCH ×2 (08:45→20:56)
[2019-06-18] MEDS ORDERED: GI COCKTAIL 45 ML (Maalox/Lidocaine) PO ONE (09:38)
[2019-06-18] MEDS ORDERED: Adacel Vial IM ONE (09:40)
[2019-06-18] MEDS ORDERED: MORPHINE SULFATE 4 MG INJ IV PRN (09:43)
[2019-06-18] MEDS ORDERED: BREXPIPRAZOLE 1 MG PO SCH (10:00)
[2019-06-18] MEDS: PATIENT OWN MEDICATION PO SCH (12:27)
[2019-06-18] MEDS ORDERED: Phenergan 25 MG INJ IM PRN (13:39)
[2019-06-18] MEDS: MORPHINE SULFATE 4 MG INJ IV PRN (17:30)
[2019-06-18 17:48] LABS: Adenovirus F 40/41 NEGATIVE (NEGATIVE); Astrovirus NEGATIVE (NEGATIVE); C. Difficile Organism NEGATIVE (NEGATIVE); Campylobacter NEGATIVE (NEGATIVE); Cryptosporidium NEGATIVE (NEGATIVE); Cyclospora cayentanensis NEGATIVE (NEGATIVE); Entamoeaba histolytica NEGATIVE (NEGATIVE); Enteroaggregative E.coli NEGATIVE (NEGATIVE); Enteropathogenic E.coli NEGATIVE (NEGATIVE); Enterotoxigenic E.coli NEGATIVE (NEGATIVE); Giardia lamblia NEGATIVE (NEGATIVE); Plesiomonas shigelloides NEGATIVE (NEGATIVE); Salmonella NEGATIVE (NEGATIVE); Shiga-like toxin prod.E.coli NEGATIVE (NEGATIVE); Vibrio NEGATIVE (NEGATIVE); Yersinia enterocolitica NEGATIVE (NEGATIVE)
[2019-06-18 17:49] LABS: Norovirus GI/GII NEGATIVE (NEGATIVE); Rotavirus A NEGATIVE (NEGATIVE); Sapovirus NEGATIVE (NEGATIVE); Vibrio cholerae NEGATIVE (NEGATIVE)
--- NOTE | 2019-06-18 19:55 | XRAY ---
Indication: Right upper quadrant pain, abdominal distention, nausea, vomiting, and diarrhea. Multiple contiguous axial images obtained through the abdomen and pelvis using 80 cc of Isovue-370 contrast only. Comparison: None Lung bases demonstrates bibasilar atelectasis/scarring. No infiltrate or effusion. Heart is not enlarged. Partially visualized bilateral breast implants. Noncontrasted stomach and bowel loops appear nonobstructed. Previous reported appendectomy and hysterectomy. No free air. Gallbladder mildly distended without gallstones or biliary distention. Mild diffuse fatty liver, 2 cm right ovary cyst, and tiny cul de sac fluid. Remaining pancreas, spleen, adrenal glands, kidneys, ureters, bladder, and aorta appear unremarkable. No pathologic retroperitoneal lymphadenopathy. Osseous structures intact. Impression: 1. Mild distended gallbladder. Gallbladder sonogram may yield further information if clinically warranted. 2. Mild fatty liver, 2 cm right ovary cyst, and tiny cul de sac fluid. Comment: Preliminary interpretation was made by [facility]. No critical discrepancy.
[2019-06-18] MEDS: DESYREL 50 MG PO SCH (20:55)
[2019-06-19] MEDS: MORPHINE SULFATE 4 MG INJ IV PRN ×4 (00:35→19:52)
[2019-06-19] MEDS: Sodium Chloride 0.9% 1000 ML 1,000 ML IV SCH ×3 (00:37→14:22)
[2019-06-19 05:24] LABS: Hematocrit 38.6 % (35-47); Hemoglobin 12.5 gm/dl (12.0-16.0); Mean Corpuscular Hemoglobin 31.7 pg (26-32); Mean Corpuscular Hgb Concent. 32.4 g/dl (32-36); Mean Platelet Volume 10.2 fl (7.5-11.0); Platelet Count 141 K/mm3 (150-450); Red Blood Count 3.94 M/mm3 (4.1-5.4); Red Cell Distribution Width 13.3 % (11.5-14.0); White Blood Count 17.2 K/mm3 (4.0-10.5)
[2019-06-19 05:35] LABS: ALBUMIN 3.1 g/dL (3.5-5.0); ALKALINE PHOSPHATASE 79 U/L (38-126); ANION GAP 7.9 MEQ/L (5-15); BLOOD UREA NITROGEN 4 mg/dL (7-17); CHLORIDE 118 mmol/L (98-107); Calcium 8.3 mg/dL (8.4-10.2); Carbon Dioxide 21 mmol/L (22-30); Creatinine 1 0.72 mg/dL (0.52-1.04); Glucose 91 mg/dL (74-106); Potassium 3.7 mmol/L (3.5-5.1); SGOT/AST 33 U/L (14-36); SGPT/ALT 32 U/L (0-35); SODIUM 143 mmol/L (137-145); Total Protein 6.4 g/dL (6.3-8.2)
[2019-06-19] MEDS: Zofran 4 MG/2 ML VIAL IV PRN ×2 (07:50→13:34)
--- NOTE | 2019-06-19 09:26 | XRAY ---
Indication: Right upper quadrant pain. Two-dimensional gallbladder sonogram performed. Comparison: December 26, 2009. Gallbladder is mildly distended with new wall thickening up to 3.1 mm. No gallstones or pericholecystic fluid. Common bile duct measures 3.8 mm. No intrahepatic biliary distention. Remaining visualized portions of the liver, pancreas, and right kidney appear sonographically unremarkable. Right kidney measures 12.2 cm in length. No ascites. Impression: Distended gallbladder with wall thickening but no gallstones. Rule out chronic cholecystitis.
[2019-06-19] MEDS: Pepcid 20 MG VIAL IV SCH ×2 (09:47→21:30)
[2019-06-19] MEDS: ROCEPHIN 1 Gm-D5w 50 ml Bag** 1 G/50 ML IVPB IV SCH (09:47)
[2019-06-19] MEDS: PROTONIX 40 MG IV IV SCH (09:47)
[2019-06-19] MEDS: ZONISAMIDE PO SCH ×2 (09:48→21:30)
[2019-06-19] MEDS: Effexor XR 75 MG PO SCH ×2 (09:48→21:29)
[2019-06-19] MEDS: PATIENT OWN MEDICATION PO SCH (09:49)
[2019-06-19] MEDS ORDERED: PATIENT OWN MEDICATION PO PRN (11:45)
--- NOTE | 2019-06-19 12:24 | PCM.NOTE ---
Date and Time: 06/19/19 1223 Subjective Assessment: still c/o abdominal pain - Review of Systems Constitutional: No Fever, No Chills Eyes: No Symptoms Ears, Nose, & Throat: No Symptoms Respiratory: No Cough, No Short Of Breath Cardiac: No Chest Pain, No Edema, No Syncope Abdominal/Gastrointestinal: Abdominal Pain, Nausea, Vomiting, Diarrhea Genitourinary Symptoms: No Dysuria Musculoskeletal: No Back Pain, No Neck Pain Skin: No Rash Neurological: No Dizziness, No Focal Weakness, No Sensory Changes Psychological: No Symptoms Endocrine: No Symptoms Hematologic/Lymphatic: No Symptoms Immunological/Allergic: No Symptoms Objective Exam General Appearance: no apparent distress, alert Neurologic Exam: alert, oriented x 3, cooperative, normal mood/affect, nml cerebellar function, sensation nml, No motor deficits Skin Exam: normal color, warm, dry Eye Exam: PERRL, EOMI, eyes nml inspection Ears, Nose, Throat Exam: normal ENT inspection, pharynx normal, moist mucous membranes Neck Exam: normal inspection, non-tender, supple, full range of motion Respiratory Exam: normal breath sounds, lungs clear, No respiratory distress Cardiovascular Exam: regular rate/rhythm, normal heart sounds Gastrointestinal/Abdomen Exam: soft, No tenderness, No mass Extremity Exam: normal inspection, normal range of motion Back Exam: normal inspection, normal range of motion, No CVA tenderness, No vertebral tenderness Pelvic Exam: deferred Rectal Exam: deferred OBJECTIVE DATA Vital Signs: Vital Signs - 24 hr Temp Pulse Resp BP Pulse Ox 06/19/19 11:53 98.5 F 88 18 123/80 93 L 06/19/19 06:53 99.0 F 82 18 126/79 90 L 06/19/19 04:00 98.3 F 93 H 20 118/55 93 L 06/18/19 23:31 97.8 F 74 16 117/81 97 06/18/19 20:00 97.8 F 72 16 113/75 96 06/18/19 16:00 98.3 F 74 18 112/65 97 Pain Assessment - Last Documented Pain Intensity 8 Pain Scale Used [facility] Intake and Output: Intake & Output 06/17/19 06/18/19 06/19/19 06/20/19 11:59 11:59 11:59 11:59 Intake Total 3540 2205 4606 Output Total 1800 4950 Balance 3540 405 -344 Weight 72.1 kg Lab Results: Lab Results-Last 24 Hours 06/18/19 06/18/19 06/19/19 Range/Units 12:15 15:18 04:48 WBC 17.2 H (4.0-10.5) K/mm3 RBC 3.94 L (4.1-5.4) M/mm3 Hgb 12.5 D (12.0-16.0) gm/dl Hct 38.6 (35-47) % MCV 98.0 (78-100) fl MCH 31.7 (26-32) pg MCHC 32.4 (32-36) g/dl RDW 13.3 (11.5-14.0) % Plt Count 141 L (150-450) K/mm3 MPV 10.2 H (7.5-11.0) fl Sodium (137-145) mmol/L Potassium 3.6 (3.5-5.1) mmol/L Chloride (98-107) mmol/L Carbon Dioxide (22-30) mmol/L Anion Gap (5-15) MEQ/L BUN (7-17) mg/dL Creatinine (0.52-1.04) mg/dL Estimated GFR ML/MIN Glucose (74-106) mg/dL Calcium (8.4-10.2) mg/dL Total Bilirubin (0.2-1.3) mg/dL AST (14-36) U/L ALT (0-35) U/L Alkaline Phosphatase (38-126) U/L Serum Total Protein (6.3-8.2) g/dL Albumin (3.5-5.0) g/dL Stl C. cayetanensis PCR NEGATIVE (NEGATIVE) Stl Adenov F 40/41 PCR NEGATIVE (NEGATIVE) Stool Astrovirus (PCR) NEGATIVE (NEGATIVE) Stool Cryptosporidium PCR NEGATIVE (NEGATIVE) Stool EPEC (PCR) NEGATIVE (NEGATIVE) Stool EAEC (PCR) NEGATIVE (NEGATIVE) Stl E. histolytica PCR NEGATIVE (NEGATIVE) Stl P. shigelloides PCR NEGATIVE (NEGATIVE) Stool Sapovirus (PCR) NEGATIVE (NEGATIVE) St Y.enterocolitica PCR NEGATIVE (NEGATIVE) Stool Vibrio (PCR) NEGATIVE (NEGATIVE) Stl Vibrio cholerae PCR NEGATIVE (NEGATIVE) Stl Norovirus GI/GII PCR NEGATIVE (NEGATIVE) Campylobacter (PCR) NEGATIVE (NEGATIVE) C. difficile (PCR) NEGATIVE (NEGATIVE) Enterotoxigenic E. coli NEGATIVE (NEGATIVE) E.coli Shiga Toxins NEGATIVE (NEGATIVE) Giardia lamblia NEGATIVE (NEGATIVE) Rotavirus A (PCR) NEGATIVE (NEGATIVE) Salmonella (PCR) NEGATIVE (NEGATIVE) Shigella (PCR) NEGATIVE (NEGATIVE) 06/19/19 Range/Units 04:48 WBC (4.0-10.5) K/mm3 RBC (4.1-5.4) M/mm3 Hgb (12.0-16.0) gm/dl Hct (35-47) % MCV (78-100) fl MCH (26-32) pg MCHC (32-36) g/dl RDW (11.5-14.0) % Plt Count (150-450) K/mm3 MPV (7.5-11.0) fl Sodium 143 (137-145) mmol/L Potassium 3.7 (3.5-5.1) mmol/L Chloride 118 H (98-107) mmol/L Carbon Dioxide 21 L (22-30) mmol/L Anion Gap 7.9 (5-15) MEQ/L BUN 4 L (7-17) mg/dL Creatinine 0.72 (0.52-1.04) mg/dL Estimated GFR > 60.0 ML/MIN Glucose 91 (74-106) mg/dL Calcium 8.3 L (8.4-10.2) mg/dL Total Bilirubin 0.20 (0.2-1.3) mg/dL AST 33 (14-36) U/L ALT 32 (0-35) U/L Alkaline Phosphatase 79 (38-126) U/L Serum Total Protein 6.4 (6.3-8.2) g/dL Albumin 3.1 L (3.5-5.0) g/dL Stl C. cayetanensis PCR (NEGATIVE) Stl Adenov F 40/41 PCR (NEGATIVE) Stool Astrovirus (PCR) (NEGATIVE) Stool Cryptosporidium PCR (NEGATIVE) Stool EPEC (PCR) (NEGATIVE) Stool EAEC (PCR) (NEGATIVE) Stl E. histolytica PCR (NEGATIVE) Stl P. shigelloides PCR (NEGATIVE) Stool Sapovirus (PCR) (NEGATIVE) St Y.enterocolitica PCR (NEGATIVE) Stool Vibrio (PCR) (NEGATIVE) Stl Vibrio cholerae PCR (NEGATIVE) Stl Norovirus GI/GII PCR (NEGATIVE) Campylobacter (PCR) (NEGATIVE) C. difficile (PCR) (NEGATIVE) Enterotoxigenic E. coli (NEGATIVE) E.coli Shiga Toxins (NEGATIVE) Giardia lamblia (NEGATIVE) Rotavirus A (PCR) (NEGATIVE) Salmonella (PCR) (NEGATIVE) Shigella (PCR) (NEGATIVE) Radiology Exams: Radiology Procedures Category Date Time Status ABDOMEN AND PELVIS W CONTRAST [CT] Routine Exams 06/18/19 10:49 Completed GALLBLADDER [US] Routine Exams 06/19/19 08:03 Completed HIDA-GALL BLADDER [NUCMED] Stat Exams 06/19/19 09:57 Ordered Multi-Disciplinary Progress Notes: Multi-Disciplinary Progress Notes 06/19/19 09:37 Case Management Note by Carmen Turner S/W PATIENT- SHE DENIES ANY NEEDS AT DC AT THIS TIME. PLANS TO RETURN HOME TO PRIOR LEVEL OF FUNCTIONING Initialized on 06/19/19 09:37 - END OF NOTE Assessment/Plan (1) Cholecystitis without cholelithiasis Current Visit: Yes Status: Acute Code(s): K81.9 - CHOLECYSTITIS, UNSPECIFIED (2) Severe dehydration Current Visit: Yes Status: Acute Code(s): E86.0 - DEHYDRATION (3) Lactic acidosis Current Visit: Yes Status: Acute Code(s): E87.2 - ACIDOSIS (4) Hypokalemia due to excessive gastrointestinal loss of potassium Current Visit: Yes Status: Acute Code(s): E87.6 - HYPOKALEMIA
[2019-06-19] MEDS ORDERED: DIPRIVAN 200 MG/20 ML IV ONE (14:56)
[2019-06-19] MEDS ORDERED: Ketamine HCl 50 MG/ML ONE ×2 (14:57→14:59)
[2019-06-19] MEDS: DESYREL 50 MG PO SCH (21:29)
[2019-06-20] MEDS: Sodium Chloride 0.9% 1000 ML 1,000 ML IV SCH ×3 (01:43→16:11)
[2019-06-20] MEDS: MORPHINE SULFATE 4 MG INJ IV PRN ×2 (03:58→09:39)
--- NOTE | 2019-06-20 08:08 | CONS ---
CONSULT DATE: 06/19/2019 The patient is seen for Dr. Maykel Stephenson who is mental retardation nurse for our group today. HISTORY: A 38 year-old female who for several months has had some nausea, vomiting, diarrhea worse with fatty foods, worse over the past two weeks. She had been seen in [facility] but was released. She has had worsening symptoms over the past couple of weeks. She had CT scan that showed a little bit of gallbladder distention. Ultrasound showed borderline wall thickening. There is no paracholecystic fluid. There is no reaction around the gallbladder to suggest acute cholecystitis. She did not have any gallstones. She has not had a recent HIDA scan. She had a HIDA scan several years ago. She did have upper endoscopy by Dr. Britt a year and a half or so ago but none recently. She said she mainly just has diarrhea when she eats. PAST MEDICAL HISTORY: Migraines in the past. She denied any chronic illnesses. PAST SURGICAL HISTORY: Appendectomy complicated by small bowel issues requiring laparotomy. She had hysterectomy in the past. MEDICATIONS: She had taken some Protonix in the past but ran out and she is taking ranitidine recently. Rexulti, trazodone, venlafaxine, zonisamide. ALLERGIES: VANCOMYCIN. FAMILY HISTORY: Negative for celiac disease according to the patient. SOCIAL HISTORY: Former smoker. Occasional alcohol use. LAB DATA AND TESTS: Liver function tests were okay. White count 17,000, hemoglobin 12.5, PLT 141,000. CT scan as mentioned did not reveal acute findings. REVIEW OF SYSTEMS: Fourteen systems reviewed per admission assessment. No chest pain or palpitations other systems negative or noncontributory as above and per preadmission questionnaire. PHYSICAL EXAMINATION: She is afebrile. Vital signs stable noted per the chart. GENERAL: No acute distress. HEENT: Sclera nonicteric. NECK: No JVD. CHEST: Equal excursion, nonlabored breathing. CVS: Regular rate and rhythm. ABDOMEN: Soft, mild tenderness epigastrium right upper quadrant. No peritoneal sign. EXTREMITIES: No edema. No cyanosis. NEURO: Alert, moving extremities grossly symmetrically. IMPRESSION: Nausea, vomiting, upper abdominal aches and pains been going on for some time, worse recently unclear etiology. It could be anything from gastritis, peptic ulcer disease, celiac disease versus biliary dyskinesia, chronic cholecystitis. Either way she definitely needs a HIDA scan. Unfortunately gave her some pain medicine today so they said they cannot do it here today and HIDA scan is not available until later in the week, . Otherwise discussed options of proceeding with upper endoscopy to evaluate for gastritis, peptic ulcer disease and can biopsy for celiac disease and rule out other etiology at the same setting. If that fails to show much she will still need a HIDA scan and decide whether to have it done here later in the week versus having it done in [place] sooner. Otherwise had a long discussion with the patient. She prefers to proceed with upper endoscopy at this time. We will have discussion a little bit later as soon as we finish the other cases that are getting ready to start. General risk of bleeding or infection, risk of bowel injury or perforation, risk of missed or nondiagnosis or incomplete exam. General risk of anesthesia, sedation, aspiration but not limited. She is agreeable to proceed with upper endoscopy possible biopsy at a later date. Otherwise if fairly unremarkable she would definitely still need the HIDA scan whether transfer and have it done elsewhere sooner versus here later in the week to evaluate for biliary dyskinesia, chronic cholecystitis. Again, this patient was seen for Dr. Stephenson who was mental retardation nurse for our group today.
[2019-06-20] MEDS: Effexor XR 75 MG PO SCH (09:29)
[2019-06-20] MEDS: PROTONIX 40 MG IV IV SCH (09:29)
[2019-06-20] MEDS: Pepcid 20 MG VIAL IV SCH (09:30)
[2019-06-20] MEDS: PATIENT OWN MEDICATION PO SCH (09:30)
[2019-06-20] MEDS: ROCEPHIN 1 Gm-D5w 50 ml Bag** 1 G/50 ML IVPB IV SCH (09:30)
[2019-06-20] MEDS: ZONISAMIDE PO SCH (09:32)
[2019-06-20] MEDS: Zofran 4 MG/2 ML VIAL IV PRN (09:39)
--- NOTE | 2019-06-20 09:58 | OP ---
SURGERY DATE/TIME: 06/19/2019 0986 PREOPERATIVE DIAGNOSIS: Chronic nausea, vomiting and diarrhea. Upper abdominal pain. Ultrasound not showing any gallstones. Borderline wall thickening, No pericholecystic fluid. No signs of any acute cholecystitis. Need for evaluation. I was unable to HIDA scan today, need for evaluation for upper endoscopy to evaluate for gastritis, peptic ulcer disease or other etiology. POSTOPERATIVE DIAGNOSIS: Mild erosive gastritis. PROCEDURES: 1) EGD with cold biopsy of small bowel to evaluate for sprue. 2) Cold biopsy of the antrum to evaluate for Helicobacter pylori. 3) Cold biopsy distal esophagus to gastroesophageal junction to evaluate for very short segment plus or minus early gastroesophagitis versus early Ibarra's versus normal variation of gastroesophageal junction, path pending. SURGEON: Dr. Estrada Handley. ANESTHESIA: MAC. ESTIMATED BLOOD LOSS: Minimal. INDICATIONS: As noted above. Risks and benefits explained in detail and not limited to and consent obtained. DESCRIPTION OF PROCEDURE AND FINDINGS: The patient is taken to the operating room. MAC anesthesia introduced. After official time out and no disagreement with planned procedure, a bite block positioned. Video gastroscope easily passed down the esophagus through the patent pylorus to the junction of the second and third portion of the duodenum. No signs of any talat ulcers in the duodenum. A cold biopsy taken of the small bowel to evaluate for celiac sprue as the folds are a little bit flattened. The scope pulled back into the stomach which did have some erosions not deep enough to cause an ulcer but it was felt she had some erosive gastritis. Cold biopsy taken of the antrum to evaluate for Helicobacter pylori. On retroflex there are no signs of any hiatal hernia. The scope is straightened and pulled back to the gastroesophageal junction. There were a couple tiny little fingerlets of 2 to 3 mm long whether just normal variation of the gastroesophageal junction versus early distal gastroesophagitis versus early Ibarra's, cold biopsy is taken of these two areas. Good hemostasis is noted. The remainder of the esophagus grossly unremarkable. Gastroesophageal junction at 40 cm. The scope is withdrawn. The patient tolerated the procedure well. Findings discussed with the family out in the waiting area. Again, it is felt she would benefit from a HIDA scan as she had minimal wall thickening, no signs of pericholecystic fluid and no signs of acute cholecystitis. Radiologist recommended doing HIDA scan as well, from review of the CT and ultrasound films with the radiologist. The patient is seen for Dr. Sean Stephenson who was spa receptionist for our group today. If the patient stays here, HIDA scan will be done on . If she is released or transferred, HIDA scan could be done earlier in the week in [place] or elsewhere. Once results are available let our office know.
[2019-06-20 12:37] VITALS: PULSE 65
[2019-06-20 16:37] VITALS: BP 140/93; O2SAT 94
--- NOTE | 2019-06-20 17:21 | PCM.DS ---
Discharge Summary Date of Admission: 06/17/19 09:15 Admitting Physician: GAYLA HAIDER Consults: Consults on Case 06/19/19 09:09 Consult Surgery ROUTINE Primary Care Provider: NO FAMILY DOCTOR Allergies Allergies black pepper Allergy (Severe, Verified 06/17/19 14:24) shellfish derived Allergy (Severe, Verified 06/17/19 14:23) Milk Containing Products Allergy (Intermediate, Verified 06/17/19 14:22) vancomycin Allergy (Verified 06/17/19 08:56) Hospital Summary - Hospital Course Hospital Course: Chief Complaint Diagnosis nausea and vomiting and diarrhea for 2 weeks Allergies Allergy/AdvReac Type Severity Reaction Status Date / Time black pepper Allergy Severe Verified 06/17/19 14:24 shellfish derived Allergy Severe Verified 06/17/19 14:23 Milk Containing Products Allergy Intermediate Verified 06/17/19 14:22 vancomycin Allergy Verified 06/17/19 08:56 Vital Signs (Last 24 hours) Temp Pulse Resp BP Pulse Ox 06/20/19 16:00 98.0 F 65 18 140/93 94 L 06/20/19 12:00 97.8 F 65 16 139/80 92 L 06/20/19 07:41 97.7 F 71 18 117/71 94 L 06/20/19 04:00 98.1 F 76 18 121/68 96 06/20/19 00:00 97.7 F 68 18 141/84 93 L 06/19/19 20:00 98.1 F 70 18 137/93 94 L Home Medications Medication Instructions Recorded Confirmed Last Taken Type Brexpiprazole [Rexulti] 1 mg PO DAILY 06/17/19 06/17/19 06/16/19 History Trazodone HCl 50 mg [Desyrel 50 50 mg PO HS 06/17/19 06/17/19 06/16/19 History mg] Venlafaxine HCl [Venlafaxine HCl 150 mg PO BID 06/17/19 06/17/19 06/16/19 History ER] Zonisamide 200 mg PO BID 06/17/19 06/17/19 06/16/19 History Current Medications Generic Name Dose Route Start Last Admin Trade Name Freq PRN Reason Stop Dose Admin Acetaminophen 650 mg 06/17/19 09:40 06/18/19 04:12 Tylenol 325 Mg PO 07/17/19 08:35 650 mg Q4H PRN PRN Administration PAIN AND/OR FEVER Famotidine 20 mg 06/18/19 10:00 06/20/19 09:30 Pepcid 20 Mg Vial IV 07/18/19 09:59 20 mg Q12HT SALO Administration Sodium Chloride 1,000 mls @ 150 mls/hr 06/17/19 09:45 06/20/19 16:11 Sodium Chloride 0.9% 1000 Ml IV 07/17/19 08:44 150 mls/hr .Q6H40M SALO Administration Ceftriaxone Sodium/Dextrose 1 g in 50 mls @ 100 mls/hr 06/17/19 12:15 09:30 Rocephin 1 Gm-D5w 50 Ml Bag IV 07/17/19 12:14 100 mls/hr Q24H10 SALO Administration Ketorolac Tromethamine 30 mg 06/18/19 06:58 06/18/19 20:57 Toradol 30 Mg Injection IV 06/23/19 06:57 30 mg Q8H PRN PRN Administration PAIN Morphine Sulfate 4 mg 06/18/19 09:44 06/20/19 09:39 Morphine Sulfate 4 Mg Inj IV 06/23/19 09:43 4 mg Q4H PRN PRN Administration PAIN Non-Formulary Medication 0 mg 06/17/19 12:30 06/20/19 09:32 Zonisamide PO 07/17/19 12:29 200 mg BID SALO Administration Ondansetron HCl 4 mg 06/18/19 09:40 06/20/19 09:39 Zofran 4 Mg/2 Ml Vial IV 07/17/19 08:35 4 mg Q6H PRN PRN Administration NAUSEA/VOMITING Pantoprazole Sodium 40 mg 06/17/19 10:00 06/20/19 09:29 Protonix 40 Mg Iv IV 07/17/19 09:59 40 mg Q24H10 SALO Administration Patient Own Med ( 0 each 06/18/19 12:00 06/20/19 09:30 Rexulti 2mg) PO 07/18/19 11:59 1 each DAILY SALO Administration Patient Own Med ( 0 each 06/19/19 11:45 06/19/19 11:45 Rizatriptan) PO 07/19/19 11:44 1 each BID PRN PRN Administration Promethazine HCl 12.5 mg 06/18/19 13:39 06/18/19 14:07 Phenergan 25 Mg Inj IM 07/18/19 13:38 12.5 mg Q6H PRN PRN Administration NAUSEA/VOMITING Trazodone HCl 50 mg 06/17/19 22:00 06/19/19 21:29 Desyrel 50 Mg PO 07/17/19 21:59 50 mg HS SALO Administration Venlafaxine HCl 150 mg 06/17/19 12:15 06/20/19 09:29 Effexor Xr 75 Mg PO 07/17/19 12:14 150 mg BID SALO Administration Discontinued Medications Generic Name Dose Route Start Last Admin Trade Name Freq PRN Reason Stop Dose Admin Acetaminophen 650 mg 06/17/19 06:58 06/17/19 07:14 [place] 650 Mg [place] 06/17/19 06:59 650 mg STAT STA Administration Acetaminophen Confirm 06/17/19 06:59 [place] 325 Mg Administered 06/17/19 07:00 Dose 650 mg .ROUTE .STK-MED ONE Acetaminophen 650 mg 06/17/19 08:36 Tylenol 325 Mg PO 07/17/19 08:35 Q4H PRN PRN PAIN AND/OR FEVER Acetaminophen 650 mg 06/17/19 09:40 Tylenol 325 Mg PO 07/17/19 08:35 Q4H PRN PRN PAIN AND/OR FEVER Adenosine Confirm 06/17/19 06:49 Adenocard Iv 6 Mg/2 Ml Administered 06/17/19 06:50 Dose 6 mg IV .STK-MED ONE Diphtheria/Tetanus/Acell Pertussis 0.5 ml 06/18/19 09:40 06/18/19 11:05 Adacel Vial IM 06/18/19 09:41 0.5 ml .ONCE ONE Administration Sodium Chloride Confirm 06/17/19 06:49 Sodium Chloride 0.9% 1000 Ml Administered 06/17/19 06:50 Dose 1,000 mls @ ud .ROUTE .STK-MED ONE Sodium Chloride Confirm 06/17/19 06:52 Sodium Chloride 0.9% 1000 Ml Administered 06/17/19 06:53 Dose 1,000 mls @ ud .ROUTE .STK-MED ONE Sodium Chloride 1,000 mls @ 999 mls/hr 06/17/19 06:57 06/17/19 07:59 Sodium Chloride 0.9% 1000 Ml IV 06/17/19 07:57 Infused .Q1H1M STA Infusion Sodium Chloride 1,000 mls @ 999 mls/hr 06/17/19 06:58 06/17/19 07:59 Sodium Chloride 0.9% 1000 Ml IV 06/17/19 07:58 Infused .Q1H1M STA Infusion Sodium Chloride 1,000 mls @ 999 mls/hr 06/17/19 07:33 06/17/19 08:20 Sodium Chloride 0.9% 1000 Ml IV 06/17/19 08:33 999 mls/hr .Q1H1M STA Administration Sodium Chloride Confirm 06/17/19 08:19 Sodium Chloride 0.9% 1000 Ml Administered 06/17/19 08:20 Dose 1,000 mls @ ud .ROUTE .STK-MED ONE Sodium Chloride 1,000 mls @ 150 mls/hr 06/17/19 08:45 Sodium Chloride 0.9% 1000 Ml IV 07/17/19 08:44 .Q6H40M SALO Sodium Chloride 1,000 mls @ 150 mls/hr 06/17/19 09:30 Sodium Chloride 0.9% 1000 Ml IV 07/17/19 08:44 .Q6H40M SALO Potassium Chloride 20 meq in 100 mls @ 50 mls/hr 06/18/19 06:15 06/18/19 08: 36 Potassium Chloride 20 Meq In Water 100ml IV 06/18/19 10:14 50 mls/hr Q2H SALO Administration Ketamine HCl Confirm 06/19/19 14:57 Ketamine Hcl 50 Mg/Ml Administered 06/19/19 14:58 Dose 10 mg .ROUTE .STK-MED ONE Ketamine HCl Confirm 06/19/19 14:59 Ketamine Hcl 50 Mg/Ml Administered 06/19/19 15:00 Dose 5 mg .ROUTE .STK-MED ONE Magnesium Hydroxide 45 ml 06/18/19 09:38 06/18/19 11:05 Gi Cocktail 45 Ml (Maalox/Lidocaine) PO 06/18/19 09:39 45 ml STAT ONE Administration Miscellaneous Information 0 each 06/17/19 12:15 Medication Intervention 07/17/19 12:14 .RN TO CHECK WITH PT [facility] Morphine Sulfate 4 mg 06/18/19 09:43 Morphine Sulfate 4 Mg Inj IV 06/23/19 09:42 Q4H PRN PRN PAIN Ondansetron HCl 4 mg 06/17/19 07:02 06/17/19 07:15 Zofran 4 Mg/2 Ml Vial IV 06/17/19 07:03 4 mg STAT ONE Administration Ondansetron HCl Confirm 06/17/19 07:02 Zofran 4 Mg/2 Ml Vial Administered 06/17/19 07:03 Dose 4 mg .ROUTE .STK-MED ONE Ondansetron HCl 4 mg 06/17/19 08:36 Zofran 4 Mg/2 Ml Vial IV 07/17/19 08:35 Q6H PRN PRN NAUSEA/VOMITING Ondansetron HCl 4 mg 06/17/19 09:40 Zofran 4 Mg/2 Ml Vial IV 07/17/19 08:35 Q6H PRN PRN NAUSEA/VOMITING Ondansetron HCl Confirm 06/17/19 20:23 Zofran 4 Mg/2 Ml Vial Administered 06/17/19 20:24 Dose 4 mg .ROUTE .STK-MED ONE Pantoprazole Sodium 40 mg 06/17/19 10:00 Protonix 40 Mg Iv IV 07/17/19 09:59 Q24H10 [facility] Pantoprazole Sodium 40 mg 06/17/19 10:00 Protonix 40 Mg Iv IV 07/17/19 09:59 Q24H10 [facility] Propofol Confirm 06/19/19 14:56 Diprivan 200 Mg/20 Ml Administered 06/19/19 14:57 Dose 200 mg IV .STK-MED ONE Intake & Output (Last 24 hours) 06/18/19 06/19/19 06/20/19 06/21/19 11:59 11:59 11:59 11:59 Intake Total 2205 4606 3722 400 Output Total 1800 4950 5600 600 Balance 205 -987 -9915 -499 Weight 72.1 kg Laboratory Results (Last 24 hours) 06/18/19 05:07 WBC 20.7 H RBC 3.22 L Hgb 10.2 L D Hct 31.0 L MCV 96.3 MCH 31.7 MCHC 32.9 RDW 12.9 Plt Count 107 L D MPV 9.5 Segmented Neutrophils 79 H Band Neutrophils 14 H Lymphocytes (Manual) 4 L Monocytes (Manual) 3 Toxic Granulation 1+ Dohle Bodies 1+ Platelet Estimate NORMAL RBC Morphology NORMAL Smear Path Review Orders (Last 24 hours) Category Date Time Status Discharge Routine Discharge 06/20/19 14:00 Ordered Patient Care Notes (Last 24 hours) 06/20/19 13:50 (created 06/20/19 14:00) Case Management Note by Mable Ponce CALLED DR. HAIDER PER PT REQUEST TO BE TRANSFERRED WHERE SHE CAN HAVE HIDA SCAN TODAY AND HAVE SURGERY IF NEEDED. PT REPORTS THAT SHE DOESN'T WANT TO BE IN THE HOSPITAL FOR 2 MORE DAYS WAITING TO HAVE TESTING DONE. PT REPORTS THAT SHE DOES NOT HAVE A PREFERENCE WHERE SHE IS TRANSFERRED, BUT WANTS TO GO TODAY. DR. HAIDER REPORTS THAT HE WILL TRANSFER PT PER HER REQUEST. CALL TO [facility]. Initialized on 06/20/19 14:00 - END OF NOTE 06/20/19 12:00 (created 06/20/19 13:23) Case Management Note by Mable Ponce DR ROUNDED AND EVALUATED. CONTINUE CURRENT TREATMENT. NO ADDNL DISCHARGE NEEDS IDENTIFIED AT THIS TIME. WILL FOLLOW. Initialized on 06/20/19 13:23 - END OF NOTE 06/20/19 09:20 (created 06/20/19 13:20) Case Management Note by Mable Ponce INDEPENDENT WITH ALL ADL'S. DENIES NEEDS FOR DISCHARGE. PLANS TO RETURN HOME TO PRE EPISODIC LEVEL OF [facility]. Initialized on 06/20/19 13:20 - END OF NOTE - Vitals & Intake/Output Vital Signs: Vital Signs Temperature 98.0 F 06/20/19 16:00 Pulse Rate 65 06/20/19 16:00 Respiratory Rate 18 06/20/19 16:00 Blood Pressure 140/93 06/20/19 16:00 O2 Sat by Pulse Oximetry 94 L 06/20/19 16:00 Intake & Output: Intake & Output 06/18/19 06/19/19 06/20/19 06/21/19 11:59 11:59 11:59 11:59 Intake Total 2205 4606 3729 400 Output Total 9702 7138 3114 600 Balance 204 -731 -8058 -200 Weight 72.1 kg - Lab Result Diagrams: 06/19/19 04:48 06/19/19 04:48 Lab Results-Last 24 Hrs: Lab Results-Last 24 Hours 06/18/19 Range/Units 05:07 WBC 20.7 H (4.0-10.5) K/mm3 RBC 3.22 L (4.1-5.4) M/mm3 Hgb 10.2 L D (12.0-16.0) gm/dl Hct 31.0 L (35-47) % MCV 96.3 (78-100) fl MCH 31.7 (26-32) pg MCHC 32.9 (32-36) g/dl RDW 12.9 (11.5-14.0) % Plt Count 107 L D (150-450) K/mm3 MPV 9.5 (7.5-11.0) fl Segmented Neutrophils 79 H (36.0-66.0) % Band Neutrophils 14 H (0.0-2.0) % Lymphocytes (Manual) 4 L (24-44) % Monocytes (Manual) 3 (0.0-12.0) % Toxic Granulation 1+ Dohle Bodies 1+ Platelet Estimate NORMAL (NORMAL) RBC Morphology NORMAL Smear Path Review - Radiology Exams Ordered Rad Exams-Entire Visit: Radiology Procedures Category Date Time Status GALLBLADDER [US] Routine Exams 06/19/19 08:03 Completed Discharge Exam General Appearance: no apparent distress, alert Neurologic Exam: alert, oriented x 3, cooperative, normal mood/affect, nml cerebellar function, sensation nml, No motor deficits Eye Exam: PERRL, EOMI, eyes nml inspection Ears, Nose, Throat Exam: normal ENT inspection, pharynx normal, moist mucous membranes Neck Exam: normal inspection, non-tender, supple, full range of motion Respiratory Exam: normal breath sounds, lungs clear, No respiratory distress Cardiovascular Exam: regular rate/rhythm, normal heart sounds Gastrointestinal/Abdomen Exam: soft, No tenderness, No mass Pelvic Exam: deferred Rectal Exam: deferred Back Exam: normal inspection, normal range of motion, No CVA tenderness, No vertebral tenderness Extremity Exam: normal inspection, normal range of motion Skin Exam: normal color, warm, dry Final Diagnosis/Problem List - Final Discharge Diagnosis/Problem (1) Cholecystitis without cholelithiasis Current Visit: Yes Status: Acute Code(s): K81.9 - CHOLECYSTITIS, UNSPECIFIED (2) Severe dehydration Current Visit: Yes Status: Acute Code(s): E86.0 - DEHYDRATION (3) Lactic acidosis Current Visit: Yes Status: Acute Code(s): E87.2 - ACIDOSIS (4) Hypokalemia due to excessive gastrointestinal loss of potassium Current Visit: Yes Status: Acute Code(s): E87.6 - HYPOKALEMIA - Discharge Discharge Date: 06/20/19 Disposition: DC TO POST HOSP Condition: Stable Prescriptions: No Action Trazodone HCl 50 mg [Desyrel 50 mg] 50 mg PO HS Venlafaxine HCl [Venlafaxine HCl ER] 150 mg PO BID Zonisamide 200 mg PO BID Brexpiprazole [Rexulti] 1 mg PO DAILY Forms: Transfer Record [employer]ency
== END 2019-06-20 16:38 | disposition home or self-care (01) ==
LOC: ED 06:35 → MED SURG 09:15 → ED 09:26
PROVIDERS: ADMIT General Practice; ATTEND General Practice
DX: K81.9 Cholecystitis, unspecified (principal); E86.0 Dehydration; E87.2 Acidosis; E87.6 Hypokalemia; K29.70 Gastritis, unspecified, without bleeding; R11.2 Nausea with vomiting, unspecified; R10.9 Unspecified abdominal pain
CPT/HCPCS: 36415; 43239; 74177; 76705; 80053; 80307; 81001; 82150; 83605; 83690; 84132; 85025; 85027; 87507; 93268; 96360; 96361; 96374; 99291; G0378; 36000; 88305; 90715; 99285; J0153; J0696; J1885; J2270; J2405; J2550; J2704; J3480; A9270-GY

== ENCOUNTER 2019-08-13 11:54 | Observation (INO) | payer SELFPAY ==
[2019-08-13] MEDS ORDERED: MORPHINE SULFATE 2 MG INJ IV ONE (13:04)
[2019-08-13] MEDS ORDERED: Sodium Chloride 0.9% 1000 ML 1,000 ML IV STA ×2 (13:05→14:58)
[2019-08-13] MEDS ORDERED: MORPHINE SULFATE 2 MG INJ ONE (13:09)
[2019-08-13] MEDS ORDERED: Sodium Chloride 0.9% 1000 ML 1,000 ML ONE ×2 (13:09→14:56)
[2019-08-13 14:09] LABS: Appearance SLIGHTLY CLOUDY (CLEAR); Bacteria RARE /HPF (NEGATIVE); Bilirubin NEGATIVE (NEGATIVE); Blood SMALL Ery/ul (0-5); Epithelial Cells MODERATE /HPF (FEW); Glucose NEGATIVE (NEGATIVE); Ketones NEGATIVE (NEGATIVE); Leukocyte Esterase NEGATIVE (NEGATIVE); Nitrite NEGATIVE (NEGATIVE); Protein,Urine Dip NEGATIVE (Negative); RBC 0-2 /HPF (0-2); Specific Gravity 1.005 (1.005-1.025); Urobilinogen NEGATIVE mg/dL (0-1)
[2019-08-13 14:12] LABS: INFLUENZA A NEGATIVE (NEGATIVE); INFLUENZA B NEGATIVE (NEGATIVE); RESPIRATORY SYNCTIAL VIRUS NEGATIVE (Negative)
[2019-08-13 14:14] LABS: Absolute Neutrophil Ct (ANC) 5.17 (1.4-6.9); BASOPHIL % 0.3 % (0.0-0.4); Basophil (Absolute #) 0.02 (0-0.4); Eosinophil % 0.6 % (0.00-5.0); Eosinophil (Absolute #) 0.04 (0-0.5); Hematocrit 36.7 % (35-47); Hemoglobin 12.3 gm/dl (12.0-16.0); Lymphocyte (Absolute #) 0.58 (1.0-4.6); Lymphocytes % 9.3 % (24.0-44.0); Mean Cell Volume 96.3 fl (78-100); Mean Corpuscular Hemoglobin 32.3 pg (26-32); Mean Corpuscular Hgb Concent. 33.5 g/dl (32-36); Mean Platelet Volume 9.3 fl (7.5-11.0); Monocyte (Absolute #) 0.43 (0.0-1.3); Monocytes % 6.9 % (0.0-12.0); Neutrophil % 82.9 % (36.0-66.0); Platelet Count 155 K/mm3 (150-450); Red Blood Count 3.81 M/mm3 (4.1-5.4); Red Cell Distribution Width 13.3 % (11.5-14.0); White Blood Count 6.2 K/mm3 (4.0-10.5)
[2019-08-13 14:16] LABS: ALBUMIN 3.6 g/dL (3.5-5.0); ALKALINE PHOSPHATASE 76 U/L (38-126); ANION GAP 9.3 MEQ/L (5-15); BLOOD UREA NITROGEN 8 mg/dL (7-17); CHLORIDE 110 mmol/L (98-107); Calcium 8.2 mg/dL (8.4-10.2); Carbon Dioxide 23 mmol/L (22-30); Creatinine 1 0.78 mg/dL (0.52-1.04); Glucose 108 mg/dL (74-106); SGOT/AST 27 U/L (14-36); SGPT/ALT 15 U/L (0-35); SODIUM 139 mmol/L (137-145); Total Protein 6.9 g/dL (6.3-8.2)
[2019-08-13 14:24] LABS: Potassium 2.6 mmol/L (3.5-5.1)
[2019-08-13] MEDS ORDERED: DILAUDID 2 MG INJECTION IV STA (14:29)
[2019-08-13] MEDS ORDERED: Hydromorphone 1 mg/ml Ampule ONE ×2 (14:40→19:26)
[2019-08-13] MEDS ORDERED: POTASSIUM CHLORIDE 20 mEq IN WATER 100ML 0 ML IV ONE (14:56)
[2019-08-13] MEDS: POTASSIUM CHLORIDE 20 mEq IN WATER 100ML 20 MEQ/100 ML BAG IV SCH ×2 (15:04→18:09)
[2019-08-13 15:07] LABS: Slide Review 1 YES
--- NOTE | 2019-08-13 17:34 | ERPHSYRPT ---
- History of Present Illness Time Seen by Provider: 08/13/19 12:20 Source: patient Exam Limitations: no limitations Patient Subjective Stated Complaint: Pt woke up Wednesday morning about 0200 and was having pain in her legs and feet and shortness of breath, pts feet are swollen and red, Triage Nursing Assessment: Pt brought to the ER by her in a wheelchair, pt unable to ambulate without full assistance, pt was fine Wednesday night and woke up Wednesday around 0200 and walked to the bathroom and vomited and then complained of her feet hurting, throughout the day her feet and legs became worse and also her chest, pt's feet are red and swollen, legs feel warm on the medial sides, feet pain with light touch, denies any injuries, 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 Symptoms started Wednesday.. Pain is been constant. Patient unable to ambulate. Patient states her leg pain became worse and decided to come to our ED. No associated trauma. No fever. No nausea or vomiting. Method of Injury: unknown Occurred: days ago (2 days ago.) Quality: constant Severity of Pain-Max: moderate Severity of Pain-Current: moderate Lower Extremities Pain: other: bilateral (Positive Homans sign bilaterally.) Associated Symptoms: none Allergies/Adverse Reactions: shellfish derived Allergy (Severe, Verified 08/13/19 20:28) Anaphylactic Reaction vancomycin Allergy (Severe, Verified 08/13/19 20:28) Anaphylactic Reaction gluten Allergy (Intermediate, Verified 08/13/19 20:28) Hives Milk Containing Products Allergy (Intermediate, Verified 08/13/19 20:28) Hives any type of peppers-vegetable Allergy (Severe, Uncoded 08/13/19 20:28) Anaphylactic Reaction Home Medications: Brexpiprazole [Rexulti] 1 mg PO DAILY 06/17/19 [History] Trazodone HCl 50 mg [Desyrel 50 mg] 50 mg PO HS 06/17/19 [History] Venlafaxine HCl [Venlafaxine HCl ER] 150 mg PO HS 06/17/19 [History] Zonisamide 200 mg PO HS 06/17/19 [History] Magnesium 250 mg PO UD 08/13/19 [History] Hx Tetanus, Diphtheria Vaccination/Date Given: Yes Hx Influenza Vaccination/Date Given: No Hx Pneumococcal Vaccination/Date Given: No - Review of Systems Constitutional: No Fever, No Chills Eyes: No Symptoms Ears, Nose, & Throat: No Symptoms Respiratory: No Symptoms, No Cough, No Dyspnea Cardiac: No Symptoms, No Chest Pain, No Edema, No Syncope Abdominal/Gastrointestinal: No Symptoms, No Abdominal Pain, No Nausea, No Vomiting, No Diarrhea Genitourinary Symptoms: No Symptoms, No Dysuria Musculoskeletal: No Symptoms, No Back Pain, No Neck Pain Skin: Cellulitis, No Rash Neurological: No Symptoms, No Dizziness, No Focal Weakness, No Sensory Changes Psychological: No Symptoms Endocrine: No Symptoms Hematologic/Lymphatic: No Symptoms All Other Systems: Reviewed and Negative - Past Medical History Pertinent Past Medical History: Yes Neurological History: No Pertinent History ENT History: No Pertinent History Cardiac History: No Pertinent History Respiratory History: No Pertinent History Endocrine Medical History: No Pertinent History Musculoskeletal History: No Pertinent History GI Medical History: No Pertinent History, Irritable Bowel History: No Pertinent History Psycho-Social History: Depression Female Reproductive Disorders: No Pertinent History - Past Surgical History Past Surgical History: Yes Neuro Surgical History: No Pertinent History Cardiac: No Pertinent History Respiratory: No Pertinent History Gastrointestinal: Appendectomy, Bowel Surgery Genitourinary: No Pertinent History Female Surgical History: Hysterectomy Other Surgical History: small bowel repair after appy- states the small bowel was knicked and has to be repaired - Social History Smoking Status: Former smoker Exposure to second hand smoke: No Drug Use: none Patient Lives Alone: No - Female History Hx Now: No (hysterectomy) - Nursing Vital Signs Nursing Vital Signs: Initial Vital Signs Temperature 97.5 F 08/13/19 12:01 Pulse Rate 101 H 08/13/19 12:01 Blood Pressure 123/96 08/13/19 12:01 O2 Sat by Pulse Oximetry 100 08/13/19 12:01 Pain Scale Pain Intensity 9 - Physical Exam General Appearance: moderate distress, alert Eyes, Ears, Nose, Throat Exam: moist mucous membranes Neck Exam: non-tender, supple Cardiovascular/Respiratory Exam: chest non-tender, normal breath sounds, regular rate/rhythm, no respiratory distress Gastrointestinal/Abdominal Exam: non-tender, guarding Back Exam: normal inspection, No vertebral tenderness Legs Exam: bilateral leg: other (Cellulitis bilateral feet. Left lower extremity shows lymphangitis. Positive Homans sign bilaterally.) Neuro/Tendon Exam: normal sensation, normal motor functions Mental Status Exam: alert, oriented x 3, cooperative Skin Exam: normal color, warm, dry SpO2 Interpretation: normal SpO2: 98 O2 Delivery: Room Air - Course Nursing assessment & vital signs reviewed: Yes EKG Interpreted by Me: RATE, NORMAL AXIS, NORMAL INTERVALS - Radiology Exams Chest X-ray Interpretation: Interpreted by me (No consolidations no infiltrates no pleural effusions no pneumonia normal bony anatomy) L-Spine X-ray Interpretation: Interpreted by me (No fracture or dislocation. Normal lumbar spine.) - Radiology Ultrasound Exam Venous Lower Extremity Ultrasound: tele radiology report (No DVT.) Ordered Tests: Active Orders 24 hr Category Date Time Status Up With Assistance ROUTINE Activity 08/13/19 20:06 Active Retail Marketing Specialist STAT Care 08/13/19 13:02 Completed Code Status Order ROUTINE Care 08/13/19 20:06 Active EKG-ER Only STAT Care 08/13/19 13:01 Completed IV Care Q6H Care 08/13/19 20:06 Active IV Insertion STAT Care 08/13/19 13:01 Completed Neuro Checks Q4H Care 08/13/19 20:[address] in Observation ROUTINE Care 08/13/19 20:06 Active Pulse Oximetry (ED) STAT Care 08/13/19 13:01 Completed NPO except Meds Diet 08/13/19 20:06 Completed CHEST 1 VIEW (PORTABLE) Stat Exams 08/13/19 13:50 Completed LUMBAR LIMITED (2 OR 3 VIEWS) Stat Exams 08/13/19 18:57 Taken VENOUS BILATERAL EXTREMITY [US] Stat Exams 08/13/19 14:34 Completed BLOOD CULTURE Stat Lab 08/13/19 13:30 Received CBC W DIFF Stat Lab 08/13/19 13:45 Completed CK (IN-HOUSE) [CK-Creatinine Phosphokinase] Stat Lab 08/13/19 17:37 Completed CMP Stat Lab 08/13/19 13:45 Completed D-DIMER QUANTITATIVE Stat Lab 08/13/19 19:26 Completed Lactic Acid Stat Lab 08/13/19 13:45 Completed Potassium Stat Lab 08/13/19 15:07 Completed SED RATE [Erythrocyte Sedimentation Rate] Stat Lab 08/13/19 18:23 Completed UA W/RFX UR CULTURE Stat Lab 08/13/19 14:00 Completed Uric Acid Stat Lab 08/13/19 18:22 Completed Pulse Oximetry CONTINUOUS RT 08/13/19 20:06 Active Medication Summary Discontinued Medications Generic Name Dose Route Start Last Admin Trade Name Freq PRN Reason Stop Dose Admin Acetaminophen 650 mg 08/13/19 23:11 08/13/19 23:15 Tylenol 325 Mg PO 08/13/19 23:12 650 mg STAT STA Administration Acetaminophen Confirm 08/13/19 23:14 Tylenol 325 Mg Administered 08/13/19 23:15 Dose 650 mg .ROUTE .STK-MED ONE Enoxaparin Sodium 63 mg 08/13/19 22:00 08/13/19 21:26 Enoxaparin Sodium SQ 09/12/19 21:59 63 mg DAILY SALO Administration Hydromorphone HCl 1 mg 08/13/19 14:29 08/13/19 14:42 Dilaudid 2 Mg Injection IV 08/13/19 14:30 1 mg ONCE STA Administration Hydromorphone HCl Confirm 08/13/19 14:40 Hydromorphone 1 Mg/Ml Ampule Administered 08/13/19 14:41 Dose 1 mg .ROUTE .STK-MED ONE Hydromorphone HCl Confirm 08/13/19 19:26 Hydromorphone 1 Mg/Ml Ampule Administered 08/13/19 19:27 Dose 1 mg .ROUTE .STK-MED ONE Hydromorphone HCl 1 mg 08/13/19 19:33 08/13/19 19:35 Hydromorphone 1 Mg/Ml Ampule IV 08/13/19 19:34 1 mg STAT ONE Administration Hydromorphone HCl 1 mg 08/13/19 20:06 Hydromorphone 1 Mg/Ml Ampule IV 08/13/19 20:07 STAT ONE Hydromorphone HCl 0.5 mg 08/13/19 20:06 08/13/19 22:58 Dilaudid 2 Mg Injection IV 08/18/19 20:05 0.5 mg Q4H PRN PRN Administration PAIN Sodium Chloride 1,000 mls @ 999 mls/hr 08/13/19 13:05 08/13/19 14:52 Sodium Chloride 0.9% 1000 Ml IV 08/13/19 14:05 Infused .Q1H1M STA Infusion Sodium Chloride Confirm 08/13/19 13:09 Sodium Chloride 0.9% 1000 Ml Administered 08/13/19 13:10 Dose 1,000 mls @ ud .ROUTE .STK-MED ONE Potassium Chloride 20 meq in 100 mls @ 50 mls/hr 08/13/19 15:00 08/13/19 18: 09 Potassium Chloride 20 Meq In Water 100ml IV 08/13/19 18:59 Not Given Q2H SALO Sodium Chloride 1,000 mls @ 999 mls/hr 08/13/19 14:58 08/13/19 16:09 Sodium Chloride 0.9% 1000 Ml IV 08/13/19 15:58 Infused .Q1H1M STA Infusion Sodium Chloride Confirm 08/13/19 14:56 Sodium Chloride 0.9% 1000 Ml Administered 08/13/19 14:57 Dose 1,000 mls @ ud .ROUTE .STK-MED ONE Linezolid 300 mls @ 150 mls/hr 08/13/19 22:00 08/13/19 18:18 Zyvox 600 Mg Iv Premix IV 09/12/19 21:59 Not Given Q12HT SALO Linezolid 300 mls @ 150 mls/hr 08/13/19 18:16 08/13/19 18:20 Zyvox 600 Mg Iv Premix IV 08/13/19 20:15 150 mls/hr STAT ONE Administration Linezolid Confirm 08/13/19 18:07 Zyvox 600 Mg Iv Premix Administered 08/13/19 18:08 Dose 300 mls @ ud IV .STK-MED ONE Potassium Chloride Confirm 08/13/19 14:56 Potassium Chloride 20 Meq In Water 100ml Administered 08/13/19 14:57 Dose 100 mls @ ud IV .STK-MED ONE Morphine Sulfate 2 mg 08/13/19 13:04 08/13/19 13:12 Morphine Sulfate 2 Mg Inj IV 08/13/19 13:05 2 mg STAT ONE Administration Morphine Sulfate Confirm 03/01/20 13:09 Morphine Sulfate 2 Mg Inj Administered 08/13/19 13:10 Dose 2 mg .ROUTE .STK-MED ONE Ondansetron HCl 4 mg 08/13/19 20:06 Zofran 4 Mg/2 Ml Vial IV 09/12/19 20:05 Q6H PRN PRN NAUSEA/VOMITING Potassium Chloride 40 meq 08/13/19 17:42 08/13/19 18:03 Klor Con 10 Meq PO 08/13/19 17:43 40 meq STAT ONE Administration Potassium Chloride Confirm 08/13/19 18:02 Klor Con 10 Meq Administered 08/13/19 18:03 Dose 40 meq PO .[employer] ONE Lab/Rad Data: Laboratory Result Diagrams 08/13/19 13:45 08/13/19 15:07 Laboratory Results 08/13/19 08/13/19 08/13/19 Range/Units 19:26 18:23 18:22 WBC (4.0-10.5) K/mm3 RBC (4.1-5.4) M/mm3 Hgb (12.0-16.0) gm/dl Hct (35-47) % MCV (78-100) fl MCH (26-32) pg MCHC (32-36) g/dl RDW (11.5-14.0) % Plt Count (150-450) K/mm3 MPV (7.5-11.0) fl Gran % (36.0-66.0) % Eos # (Auto) (0-0.5) Absolute Lymphs (auto) (1.0-4.6) Absolute Monos (auto) (0.0-1.3) Lymphocytes % (24.0-44.0) % Monocytes % (0.0-12.0) % Eosinophils % (0.00-5.0) % Basophils % (0.0-0.4) % Absolute Granulocytes (1.4-6.9) Basophils # (0-0.4) ESR 28 H (0-20) mm/hr D-Dimer 5965 H* (215-500) ng/mL Sodium (137-145) mmol/L Potassium (3.5-5.1) mmol/L Chloride (98-107) mmol/L Carbon Dioxide (22-30) mmol/L Anion Gap (5-15) MEQ/L BUN (7-17) mg/dL Creatinine (0.52-1.04) mg/dL Estimated GFR ML/MIN Glucose (74-106) mg/dL Lactic Acid (0.4-2.0) Uric Acid 3.7 (2.6-6.0) mg/dL Calcium (8.4-10.2) mg/dL Total Bilirubin (0.2-1.3) mg/dL AST (14-36) U/L ALT (0-35) U/L Alkaline Phosphatase (38-126) U/L Creatine Kinase (30-135) U/L Serum Total Protein (6.3-8.2) g/dL Albumin (3.5-5.0) g/dL Urine Color (YELLOW) Urine Appearance (CLEAR) Urine pH (5-6) Ur Specific [place] (1.005-1.025) Urine Protein (Negative) Urine Ketones (NEGATIVE) Urine Blood (0-5) Itz/ul Urine Nitrite (NEGATIVE) Urine Bilirubin (NEGATIVE) Urine Urobilinogen (0-1) mg/dL Ur Leukocyte Esterase (NEGATIVE) Urine WBC (Auto) (0-5) /HPF Urine RBC (Auto) (0-2) /HPF U Epithel Cells (Auto) (FEW) /HPF Urine Bacteria (Auto) (NEGATIVE) /HPF Urine Culture Reflexed (NO) Urine Glucose (NEGATIVE) mg/dL Influenza Type A Ag (NEGATIVE) Influenza Type B Ag (NEGATIVE) RSV (PCR) (Negative) Slides for Path Review 08/13/19 08/13/19 08/13/19 Range/Units 17:37 15:07 14:00 WBC (4.0-10.5) K/mm3 RBC (4.1-5.4) M/mm3 Hgb (12.0-16.0) gm/dl Hct (35-47) % MCV (78-100) fl MCH (26-32) pg MCHC (32-36) g/dl RDW (11.5-14.0) % Plt Count (150-450) K/mm3 MPV (7.5-11.0) fl Gran % (36.0-66.0) % Eos # (Auto) (0-0.5) Absolute Lymphs (auto) (1.0-4.6) Absolute Monos (auto) (0.0-1.3) Lymphocytes % (24.0-44.0) % Monocytes % (0.0-12.0) % Eosinophils % (0.00-5.0) % Basophils % (0.0-0.4) % Absolute Granulocytes (1.4-6.9) Basophils # (0-0.4) ESR (0-20) mm/hr D-Dimer (215-500) ng/mL Sodium (137-145) mmol/L Potassium 3.1 L (3.5-5.1) mmol/L Chloride (98-107) mmol/L Carbon Dioxide (22-30) mmol/L Anion Gap (5-15) MEQ/L BUN (7-17) mg/dL Creatinine (0.52-1.04) mg/dL Estimated GFR ML/MIN Glucose (74-106) mg/dL Lactic Acid (0.4-2.0) Uric Acid (2.6-6.0) mg/dL Calcium (8.4-10.2) mg/dL Total Bilirubin (0.2-1.3) mg/dL AST (14-36) U/L ALT (0-35) U/L Alkaline Phosphatase (38-126) U/L Creatine Kinase 197 H (30-135) U/L Serum Total Protein (6.3-8.2) g/dL Albumin (3.5-5.0) g/dL Urine Color YELLOW (YELLOW) Urine Appearance SLIGHTLY CLOUDY (CLEAR) Urine pH 6.0 (5-6) Ur Specific [place] 1.005 (1.005-1.025) Urine Protein NEGATIVE (Negative) Urine Ketones NEGATIVE (NEGATIVE) Urine Blood SMALL (0-5) Itz/ul Urine Nitrite NEGATIVE (NEGATIVE) Urine Bilirubin NEGATIVE (NEGATIVE) Urine Urobilinogen NEGATIVE (0-1) mg/dL Ur Leukocyte Esterase NEGATIVE (NEGATIVE) Urine WBC (Auto) 3-5 (0-5) /HPF Urine RBC (Auto) 0-2 (0-2) /HPF U Epithel Cells (Auto) MODERATE (FEW) /HPF Urine Bacteria (Auto) RARE (NEGATIVE) /HPF Urine Culture Reflexed NO (NO) Urine Glucose NEGATIVE (NEGATIVE) mg/dL Influenza Type A Ag (NEGATIVE) Influenza Type B Ag (NEGATIVE) RSV (PCR) (Negative) Slides for Path Review 08/13/19 08/13/19 08/13/19 Range/Units 13:45 13:45 13:45 WBC 6.2 (4.0-10.5) K/mm3 RBC 3.81 L (4.1-5.4) M/mm3 Hgb 12.3 (12.0-16.0) gm/dl Hct 36.7 (35-47) % MCV 96.3 (78-100) fl MCH 32.3 H (26-32) pg MCHC 33.5 (32-36) g/dl RDW 13.3 (11.5-14.0) % Plt Count 155 (150-450) K/mm3 MPV 9.3 (7.5-11.0) fl Gran % 82.9 H (36.0-66.0) % Eos # (Auto) 0.04 (0-0.5) Absolute Lymphs (auto) 0.58 L (1.0-4.6) Absolute Monos (auto) 0.43 (0.0-1.3) Lymphocytes % 9.3 L (24.0-44.0) % Monocytes % 6.9 (0.0-12.0) % Eosinophils % 0.6 (0.00-5.0) % Basophils % 0.3 (0.0-0.4) % Absolute Granulocytes 5.17 (1.4-6.9) Basophils # 0.02 (0-0.4) ESR (0-20) mm/hr D-Dimer (215-500) ng/mL Sodium 139 (137-145) mmol/L Potassium 2.6 L* (3.5-5.1) mmol/L Chloride 110 H (98-107) mmol/L Carbon Dioxide 23 (22-30) mmol/L Anion Gap 9.3 (5-15) MEQ/L BUN 8 (7-17) mg/dL Creatinine 0.78 (0.52-1.04) mg/dL Estimated GFR > 60.0 ML/MIN Glucose 108 H (74-106) mg/dL Lactic Acid 1.1 (0.4-2.0) Uric Acid (2.6-6.0) mg/dL Calcium 8.2 L (8.4-10.2) mg/dL Total Bilirubin 0.50 (0.2-1.3) mg/dL AST 27 (14-36) U/L ALT 15 (0-35) U/L Alkaline Phosphatase 76 (38-126) U/L Creatine Kinase (30-135) U/L Serum Total Protein 6.9 (6.3-8.2) g/dL Albumin 3.6 (3.5-5.0) g/dL Urine Color (YELLOW) Urine Appearance (CLEAR) Urine pH (5-6) Ur Specific [place] (1.005-1.025) Urine Protein (Negative) Urine Ketones (NEGATIVE) Urine Blood (0-5) Itz/ul Urine Nitrite (NEGATIVE) Urine Bilirubin (NEGATIVE) Urine Urobilinogen (0-1) mg/dL Ur Leukocyte Esterase (NEGATIVE) Urine WBC (Auto) (0-5) /HPF Urine RBC (Auto) (0-2) /HPF U Epithel Cells (Auto) (FEW) /HPF Urine Bacteria (Auto) (NEGATIVE) /HPF Urine Culture Reflexed (NO) Urine Glucose (NEGATIVE) mg/dL Influenza Type A Ag (NEGATIVE) Influenza Type B Ag (NEGATIVE) RSV (PCR) (Negative) Slides for Path Review YES 08/13/19 Range/Units 13:33 WBC (4.0-10.5) K/mm3 RBC (4.1-5.4) M/mm3 Hgb (12.0-16.0) gm/dl Hct (35-47) % MCV (78-100) fl MCH (26-32) pg MCHC (32-36) g/dl RDW (11.5-14.0) % Plt Count (150-450) K/mm3 MPV (7.5-11.0) fl Gran % (36.0-66.0) % Eos # (Auto) (0-0.5) Absolute Lymphs (auto) (1.0-4.6) Absolute Monos (auto) (0.0-1.3) Lymphocytes % (24.0-44.0) % Monocytes % (0.0-12.0) % Eosinophils % (0.00-5.0) % Basophils % (0.0-0.4) % Absolute Granulocytes (1.4-6.9) Basophils # (0-0.4) ESR (0-20) mm/hr D-Dimer (215-500) ng/mL Sodium (137-145) mmol/L Potassium (3.5-5.1) mmol/L Chloride (98-107) mmol/L Carbon Dioxide (22-30) mmol/L Anion Gap (5-15) MEQ/L BUN (7-17) mg/dL Creatinine (0.52-1.04) mg/dL Estimated GFR ML/MIN Glucose (74-106) mg/dL Lactic Acid (0.4-2.0) Uric Acid (2.6-6.0) mg/dL Calcium (8.4-10.2) mg/dL Total Bilirubin (0.2-1.3) mg/dL AST (14-36) U/L ALT (0-35) U/L Alkaline Phosphatase (38-126) U/L Creatine Kinase (30-135) U/L Serum Total Protein (6.3-8.2) g/dL Albumin (3.5-5.0) g/dL Urine Color (YELLOW) Urine Appearance (CLEAR) Urine pH (5-6) Ur Specific [place] (1.005-1.025) Urine Protein (Negative) Urine Ketones (NEGATIVE) Urine Blood (0-5) Itz/ul Urine Nitrite (NEGATIVE) Urine Bilirubin (NEGATIVE) Urine Urobilinogen (0-1) mg/dL Ur Leukocyte Esterase (NEGATIVE) Urine WBC (Auto) (0-5) /HPF Urine RBC (Auto) (0-2) /HPF U Epithel Cells (Auto) (FEW) /HPF Urine Bacteria (Auto) (NEGATIVE) /HPF Urine Culture Reflexed (NO) Urine Glucose (NEGATIVE) mg/dL Influenza Type A Ag NEGATIVE (NEGATIVE) Influenza Type B Ag NEGATIVE (NEGATIVE) RSV (PCR) NEGATIVE (Negative) Slides for Path Review - Progress Progress: improved Progress Note: 08/14/19 06:34 Patient reassessed. Pain improved somewhat. Case discussed with Dr. Jarquin who accepts admission to observation. D-dimer positive. Radiology declined CTA chest. VQ scan ordered. Patient empirically treated with weight-based Lovenox pending VQ scan. Discussed with : Marianela Counseled pt/family regarding: lab results, diagnosis, rad results - Departure Departure Disposition: Home, Observation Clinical Impression: Cellulitis, Leg pain, bilateral Condition: Stable Critical Care Time: No
[2019-08-13] MEDS ORDERED: Klor Con 10 MEQ PO ONE ×2 (17:42→18:02)
[2019-08-13] MEDS ORDERED: Zyvox 600 MG IV PREMIX*** 300 ML IV ONE ×2 (18:07→18:16)
[2019-08-13] MEDS ORDERED: Hydromorphone 1 mg/ml Ampule IV ONE ×2 (19:33→20:06)
[2019-08-13] MEDS ORDERED: Zofran 4 MG/2 ML VIAL IV PRN (20:06)
[2019-08-13] MEDS ORDERED: DILAUDID 2 MG INJECTION IV PRN (20:06)
[2019-08-13 21:06] VITALS: BP 116/69; PULSE 103
--- NOTE | 2019-08-13 21:22 | XRAY ---
Indication: Cough and bilateral leg swelling. Comparison: February 25, 2009. Portable chest again demonstrates normal heart, lungs, and bony thorax.
--- NOTE | 2019-08-13 21:24 | XRAY ---
Indication: DVT. Bilateral leg pain, swelling, and redness. 2-dimensional sonogram and color Doppler imaging of the major venous vessels of the left and right leg was performed. Comparison: None No thrombus seen in the examined deep venous vessels of the left and right leg including greater saphenous vein. Veins demonstrate normal compressibility. Venous waveforms are normal with and without augmentation. Impression: Left and right legs negative for DVT. Comment: Preliminary report was given.
[2019-08-13] MEDS ORDERED: Zyvox 600 MG IV PREMIX*** 300 ML IV SCH (22:00)
[2019-08-13] MEDS ORDERED: ENOXAPARIN SODIUM SQ SCH (22:00)
[2019-08-13 22:33] LABS: INR 1.34 (0.8-3.0); PROTIME 15.2 SECONDS (9.95-12.35)
[2019-08-13 22:35] LABS: PTT 39.1 SECONDS (25.3-37.0)
[2019-08-13 22:43] LABS: MAGNESIUM 1.6 mg/dL (1.6-2.3); PREALBUMIN 12.16 mg/dL (17.6-36.0)
[2019-08-13] MEDS ORDERED: TYLENOL 325 MG PO STA (23:11)
[2019-08-13] MEDS ORDERED: TYLENOL 325 MG ONE (23:14)
[2019-08-14 06:36] VITALS: O2SAT 98
--- NOTE | 2019-08-14 08:49 | XRAY ---
Indication: Back pain. Comparison: None 3 views of the lumbar spine demonstrates 5 lumbar vertebral segments in normal alignment with minimal L4/L5 endplate spurring. Vertebral body heights/disc spaces maintained. No acute fracture, subluxation, or suspicious bony lesions. There is incidental moderate diffuse fecal stasis throughout and ingested pills in the stomach. Impression: Minimal lumbar degenerative changes and diffuse fecal stasis.
[2019-08-15 11:44] LABS: ANA IgG Screen Positive (Neg. at 1:80)
[2019-08-15 12:31] LABS: ANA Pattern Interp Detail See Result Note:
[2019-08-17 20:13] LABS: Fibrinogen Ratio Ag/Functional 0.89 ratio (0.59-1.23)
--- NOTE | 2019-08-24 11:11 | PCM.SSS ---
History of Present Illness - Chief Complaint Chief Complaint: cellulitis History of Present Illness: is a 39 year old female who was evaluated in the ER for severe LE pain ,ruled out DVT and dg cellulitis.Plan was to admit to [facility] for pain control and further workup/tx. - Review of Systems Constitutional: Other (see ER ROS) Medications & Allergies Home Medications: Home Medication List Brexpiprazole [Rexulti] 1 mg PO DAILY 06/17/19 [History Confirmed 08/13/19] Trazodone HCl 50 mg [Desyrel 50 mg] 50 mg PO HS 06/17/19 [History Confirmed 08/13/19] Venlafaxine HCl [Venlafaxine HCl ER] 150 mg PO HS 06/17/19 [History Confirmed ] Zonisamide 200 mg PO HS 06/17/19 [History Confirmed 08/13/19] Magnesium 250 mg PO UD 08/13/19 [History Confirmed 08/13/19] Allergies/Adverse Reactions: Allergies Allergy/AdvReac Type Severity Reaction Status Date / Time shellfish derived Allergy Severe Anaphylactic Verified 08/13/19 20:28 Reaction vancomycin Allergy Severe Anaphylactic Verified 08/13/19 20:28 Reaction gluten Allergy Intermediate Hives Verified 08/13/19 20:28 Milk Containing Products Allergy Intermediate Hives Verified 08/13/19 20:28 any type of peppers-vegetable Allergy Severe Anaphylactic Uncoded 08/13/19 20:28 Reaction - Past Medical History Past Medical History: Yes Neurological History: No Pertinent History ENT History: No Pertinent History Cardiac History: No Pertinent History Respiratory History: No Pertinent History Endocrine Medical History: No Pertinent History Musculoskelatal History: No Pertinent History GI Medical History: No Pertinent History, Irritable Bowel History: No Pertinent History Pyscho-Social History: Depression Reproductive Disorders: No Pertinent History - Female History Are you now?: No (hysterectomy) - Past Surgical History Past Surgical History: Yes Neuro Surgical History: No Pertinent History Cardiac History: No Pertinent History Respiratory Surgery: No Pertinent History GI Surgical History: Appendectomy, Bowel Surgery Genitourinary Surgical Hx: No Pertinent History Female Surgical History: Hysterectomy Other Surgical History: small bowel repair after appy- states the small bowel was knicked and has to be repaired - Social History Smoking Status: Former smoker Exposure to second hand smoke: No Alcohol: Occasionally Drug Use: none - Physical Exam General Appearance: other (Patient was examined by ER physician and accepted to [facility] but then rapidly transferred to [facility] hospital due to possible DIC with a D-dimer = 5,[phone]) Neurologic Exam: alert, oriented x 3, cooperative (I discussed by phone with Rossana the need to quickly transfer her to [facility] for management of elevated D-dimer and possible DIC ,she voiced understanding and transfered before I reached the floor.) Results - Labs Lab/Micro Results: Microbiology 08/13/19 13:45 Blood Culture Gram Stain - Final Blood Not Reportable Blood Culture - Final NO GROWTH 08/13/19 13:30 Blood Culture Gram Stain - Final Blood Not Reportable Blood Culture - Final NO GROWTH Assessment/Plan (1) Leg pain, bilateral Status: Acute Code(s): M79.604 - PAIN IN RIGHT LEG; M79.605 - PAIN IN LEFT LEG (2) Elevated d-dimer Status: Acute Assessment & Plan: D-dimer value was reported as 500 but correct D-Dimer value is 5.965 which requires admission to Acute Care Hospital. Code(s): R79.89 - OTHER SPECIFIED ABNORMAL FINDINGS OF BLOOD CHEMISTRY Hospital Summary - Hospital Course Hospital Course: Patient presented to ER with acute onset of severe pain in both legs ,unable to bear weight due to pain. Homans sign was positive by ER doctors exam but LE doppler was negative for DVT. Per ER physician,patient did not have sob or dyspnea, CXR read as no acute changes. D-dimer was reported to me as 500 and patient was accepted for admission to [facility] for pain control and further work up but corrected D-dimer value was 5.965 .With concern for DIC , arrangements were made for quick transfer to [facility] where Supervisor Sewing Room could manage. - Vitals & Intake/Output Vital Signs: Vital Signs Temperature 99.1 F 08/13/19 20:29 Pulse Rate 103 H 08/13/19 20:29 Respiratory Rate 24 08/13/19 20:29 Blood Pressure 116/69 08/13/19 20:29 O2 Sat by Pulse Oximetry 98 08/14/19 06:42 - Lab Result Diagrams: 08/13/19 13:45 08/13/19 15:07 Micro Results-Entire Visit: Microbiology 08/13/19 13:45 Blood Culture Gram Stain - Final Blood Not Reportable Blood Culture - Final NO GROWTH 08/13/19 13:30 Blood Culture Gram Stain - Final Blood Not Reportable Blood Culture - Final NO GROWTH - Procedures and Test Procedures and Tests throughout Hospitalization: Therapy Orders & Screens 08/14/19 08:00 OT Screen per Nursing Assess ONCE Comment: Protocol Order Physician Instructions: Greater than 3 points order OT Admission Screening Reason For Exam: Triggered on Admission Diagnosis: cellulitis Open Wound/Cellutlitis/Pressure Ulcers: Yes Acute Fx/ORIF/Change in wt bearing status: No Severe MUSCULOSKELETAL pain: Yes ADL Dysfunction: No Acute CVA w/Hemiparesis/Hemiplegia: No Decreased Functional Mobility/Strength: No Sprain/Strain: No Acute Post-op Mobility Dysfunction: No Total Points: 10 - Discharge Disposition: [facility] Condition: Stable Prescriptions: No Action Trazodone HCl 50 mg [Desyrel 50 mg] 50 mg PO HS Venlafaxine HCl [Venlafaxine HCl ER] 150 mg PO HS Zonisamide 200 mg PO HS Brexpiprazole [Rexulti] 1 mg PO DAILY Magnesium 250 mg PO UD Follow up with: NASREEN PAGE [Primary Care Provider] - 1 Week
== END 2019-08-13 23:55 | disposition short-term general hospital (02) ==
LOC: ED 11:54 → MED SURG 20:02
PROVIDERS: ADMIT Family Medicine; ATTEND Family Medicine
DX: M79.605 Pain in left leg (principal); M79.604 Pain in right leg; R79.1 Abnormal coagulation profile; R79.89 Other specified abnormal findings of blood chemistry; L03.90 Cellulitis, unspecified; Z79.899 Other long term (current) drug therapy
CPT/HCPCS: 36415; 71045; 72100; 80053; 81001; 82550; 82607; 83605; 83735; 84132; 84134; 84550; 85025; 85379; 85384; 85385; 85610; 85652; 85730; 86038; 86039; 86140; 86430; 87040; 87631; 93005; 93041; 93970; 94760; 96360; 96361; 96365; 96374; 96375; 96376; 99285; G0378; J1170; J1650; J2020; J2270; J3480; A9270-GY

== ENCOUNTER 2023-04-26 14:37 | Emergency (ER) | payer BC | END 2023-04-26 16:23 | disposition left against medical advice (07) | LOC: ED 14:37 | DX: Z53.21 Procedure and treatment not carried out due to patient leaving prior to being seen by health care provider (principal) ==

== ENCOUNTER 2023-04-29 16:51 | Emergency (ER) | payer BC, OTHER ==
[2023-04-29 17:11] VITALS: TEMP 98.2
[2023-04-29] MEDS ORDERED: PROTONIX 40 MG IV IV ONE ×2 (17:13→17:28)
[2023-04-29] MEDS ORDERED: Sodium Chloride 0.9% 1000 ML 1,000 ML IV STA ×2 (17:13→19:09)
[2023-04-29] MEDS ORDERED: Compazine 10 MG/2 ML IV ONE (17:13)
[2023-04-29] MEDS ORDERED: Hydromorphone 1 mg/ml Injection IV ONE (17:13)
--- NOTE | 2023-04-29 17:13 | ERPHSYRPT ---
- History of Present Illness Time Seen by Provider: 04/29/23 17:12 Historian: patient Exam Limitations: no limitations Patient Subjective Stated Complaint: Pt states "I tested positive for covid on wednesday and I came here but the wait was to long so I went to [facility] and they just gave me paxlovid and pushed me out the door. I feel terrible and I am just not getting any better." Triage Nursing Assessment: Pt presented alert and oriented X 3, skin pwd. pt ambulates with an upright steady gait, able to speak in clear full sentences. Pt resting comfortably on the bed. Physician History: This is a thin 42-year-old white female patient who was diagnosed with COVID-19 infection on 04/26/2023. She presented to our emergency department but we are very busy and therefore patient left and went to [facility] emergency department where she was seen, received Paxlovid then told to go home. This was per her report. Patient has been feeling horrible. She is not improving. Patient also states that she was dizzy on 04/26/2023 and did fall and hit her head. She was also feeling weak at that time. She has body aches and a headache. She has also had some diarrhea symptoms. She denies chest pain. She denies shortness of breath. Patient has a history of hypertension, hypothyroidism, irritable bowel syndrome, depression and migraine headaches. Timing/Duration: day(s) (Forward days), worse Quality: aching Pain Radiation: no radiation Severity of Pain-Max: none Severity of Pain-Current: none Associated Symptoms: diarrhea, headache, weakness, other (Arthralgias and myalgias), No chest pain, No shortness of breath Previous symptoms: same symptoms as today, recently seen Allergies/Adverse Reactions: alcohol [From Mastisol Adhesive] Allergy (Severe, Verified 04/29/23 17:11) gum mastic [From Mastisol Adhesive] Allergy (Severe, Verified 04/29/23 17:11) methyl salicylate [From Mastisol Adhesive] Allergy (Severe, Verified 04/29/23 17:11) peanut Allergy (Severe, Verified 04/29/23 17:11) shellfish derived Allergy (Severe, Verified 01/04/23 09:09) Anaphylactic Reaction storax [From Mastisol Adhesive] Allergy (Severe, Verified 04/29/23 17:11) vancomycin Allergy (Severe, Verified 01/04/23 09:09) Anaphylactic Reaction gluten Allergy (Intermediate, Verified 01/04/23 09:09) Hives Milk Containing Products (Dairy) [Milk Containing Products] Allergy (Intermediate, Verified 01/04/23 09:09) Hives any type of peppers-vegetable Allergy (Severe, Uncoded 01/04/23 09:09) Anaphylactic Reaction Home Medications: Brexpiprazole [Rexulti] 1 mg PO DAILY 06/17/19 [History] Venlafaxine HCl [Venlafaxine HCl ER] 150 mg PO HS 06/17/19 [History] Zonisamide 200 mg PO HS 06/17/19 [History] Metoprolol Tartrate 50 mg [Lopressor 50 MG] 50 mg PO BID 04/29/23 [History] Hx Tetanus, Diphtheria Vaccination/Date Given: Yes Hx Influenza Vaccination/Date Given: No Hx Pneumococcal Vaccination/Date Given: No Immunizations Up to Date: No Travel Risk - International Travel Have you traveled outside of the country in past 3 weeks: No - Coronavirus Screening Are you exhibiting any of the following symptoms?: Yes Symptoms: Fever, Headaches/Body Aches/Fatigue Close contact with a COVID-19 positive Pt in past 14-21 Days: Yes - Vaccine Status Have you recieved a Covid-19 vaccination: No - Review of Systems Constitutional: Weakness Eyes: No Symptoms Ears, Nose, & Throat: No Symptoms Respiratory: No Symptoms Cardiac: No Symptoms Abdominal/Gastrointestinal: Diarrhea, Appetite Changes Genitourinary Symptoms: No Symptoms Musculoskeletal: Arthralgias, Myalgias Skin: No Symptoms Neurological: Dizziness, Headache Psychological: No Symptoms Endocrine: No Symptoms Hematologic/Lymphatic: No Symptoms Immunological/Allergic: No Symptoms All Other Systems: Reviewed and Negative - Past Medical History Pertinent Past Medical History: Yes Neurological History: Migraines ENT History: No Pertinent History Cardiac History: Hypertension Respiratory History: No Pertinent History Endocrine Medical History: Hypothyroidism Musculoskeletal History: No Pertinent History GI Medical History: No Pertinent History, Irritable Bowel History: No Pertinent History Psycho-Social History: Depression Female Reproductive Disorders: No Pertinent History - Past Surgical History Past Surgical History: Yes Neuro Surgical History: No Pertinent History Cardiac: No Pertinent History Respiratory: No Pertinent History Gastrointestinal: Bowel Surgery, Appendectomy Genitourinary: No Pertinent History Female Surgical History: Hysterectomy Other Surgical History: small bowel repair after appy- states the small bowel was knicked and has to be repaired - Social History Smoking Status: Former smoker Exposure to second hand smoke: No Drug Use: none Patient Lives Alone: No - Female History Hx Last Menstrual Period: hysterectomy Hx Now: No - Nursing Vital Signs Nursing Vital Signs: Initial Vital Signs Temperature 98.2 F 04/29/23 17:03 Pulse Rate 115 H 04/29/23 17:03 Respiratory Rate 22 04/29/23 17:03 Blood Pressure 138/106 04/29/23 17:03 O2 Sat by Pulse Oximetry 99 04/29/23 17:03 Pain Scale Pain Intensity 0 - Physical Exam General Appearance: mild distress, alert, anxiety, thin Eye Exam: PERRL/EOMI, eyes nml inspection Ears, Nose, Throat Exam: normal ENT inspection, moist mucous membranes Neck Exam: normal inspection, non-tender, supple, full range of motion Respiratory Exam: normal breath sounds, lungs clear, airway intact, No chest te nderness, No respiratory distress Cardiovascular Exam: tachycardia Gastrointestinal/Abdomen Exam: soft, normal bowel sounds, No tenderness Pelvic Exam: not done Rectal Exam: not done Back Exam: normal inspection, normal range of motion, No CVA tenderness, No vertebral tenderness Extremity Exam: normal inspection, normal range of motion, pelvis stable Neurologic Exam: alert, oriented x 3, cooperative, supervisor gluing II-XII nml as tested, normal mood/affect, nml cerebellar function, nml station & gait, sensation nml Skin Exam: normal color, warm, dry Lymphatic Exam: No adenopathy SpO2 Interpretation: normal SpO2: 99 O2 Delivery: Room Air - Course Nursing assessment & vital signs reviewed: Yes Ordered Tests: Active Orders 24 hr Category Date Time Status IV Insertion STAT Care 04/29/23 17:13 Active HEAD WITHOUT CONTRAST [CT] Stat Exams 04/29/23 19:05 Taken AMYLASE Stat Lab 04/29/23 17:40 Completed CBC W DIFF Stat Lab 04/29/23 17:40 Completed CMP Stat Lab 04/29/23 17:40 Completed LIPASE Stat Lab 04/29/23 17:40 Completed Lactic Acid Stat Lab 04/29/23 17:13 Completed Lactic Acid Stat Lab 04/29/23 19:43 Received UA W/RFX UR CULTURE Stat Lab 04/29/23 18:00 Completed Medication Summary Generic Name Dose Route Start Last Admin Trade Name Natalee PRN Reason Stop Dose Admin Sodium Chloride 1,000 mls @ 999 mls/hr 04/29/23 19:09 04/29/23 19:29 Sodium Chloride 0.9% 1000 Ml IV 04/29/23 20:09 999 mls/hr .Q1H1M STA Administration Discontinued Medications Generic Name Dose Route Start Last Admin Trade Name Natalee PRN Reason Stop Dose Admin Methylprednisolone Sodium 0 mg 04/29/23 19:01 04/29/23 19:29 Succinate 125 mg/ Sterile IV 04/29/23 19:02 125 mg Water 2 ml STAT ONE Administration Hydromorphone HCl 1 mg 04/29/23 17:13 04/29/23 17:33 Hydromorphone 1 Mg/1ml Inj IV 04/29/23 17:14 1 mg STAT ONE Administration Hydromorphone HCl Confirm 04/29/23 17:29 Hydromorphone 1 Mg/1ml Inj Administered 04/29/23 17:30 Dose 1 mg .ROUTE .STK-MED ONE Sodium Chloride 1,000 mls @ 999 mls/hr 04/29/23 17:13 04/29/23 18:50 Sodium Chloride 0.9% 1000 Ml IV 04/29/23 18:13 Infused .Q1H1M STA Infusion Sodium Chloride Confirm 04/29/23 17:29 Sodium Chloride 0.9% 1000 Ml Administered 04/29/23 17:30 Dose 1,000 mls @ ud .ROUTE .STK-MED ONE Sodium Chloride Confirm 04/29/23 19:27 Sodium Chloride 0.9% 1000 Ml Administered 04/29/23 19:28 Dose 1,000 mls @ ud .ROUTE .STK-MED ONE Methylprednisolone Sodium Succinate Confirm 04/29/23 19:27 Methylprednis Sod Succ 125 Mg/2 Ml Vial Administered 04/29/23 19:28 Dose 125 mg .ROUTE .STK-MED ONE Pantoprazole Sodium 40 mg 04/29/23 17:13 04/29/23 17:33 Pantoprazole 40 Mg Vial IV 04/29/23 17:14 40 mg STAT ONE Administration Pantoprazole Sodium Confirm 04/29/23 17:28 Pantoprazole 40 Mg Vial Administered 04/29/23 17:29 Dose 40 mg IV .STK-MED ONE Prochlorperazine Edisylate 5 mg 04/29/23 17:13 04/29/23 17:33 Prochlorperazine Edisylate 10 Mg/2 Ml Vial IV 04/29/23 17:14 5 mg STAT ONE Administration Prochlorperazine Edisylate Confirm 04/29/23 17:29 Prochlorperazine Edisylate 10 Mg/2 Ml Vial Administered 04/29/23 17:30 Dose 10 mg .ROUTE .STK-MED ONE Sterile Water Confirm 04/29/23 19:27 Water For Injection,Sterile 10 Ml Vial Administered 04/29/23 19:28 Dose 10 ml IJ .STK-MED ONE Lab/Rad Data: Laboratory Result Diagrams 04/29/23 17:40 04/29/23 17:40 Laboratory Results 04/29/23 04/29/23 04/29/23 Range/Units 18:00 17:40 17:40 WBC 3.5 L (4.0-10.5) x10^3/uL RBC 5.20 (4.1-5.4) x10^6/uL Hgb 15.4 (12.0-16.0) g/dL Hct 46.6 (35-47) % MCV 89.6 (78-100) fL MCH 29.6 (26-32) pg MCHC 33.0 (32-36) g/dL RDW 11.6 (11.5-14.0) % Plt Count 206 (150-450) x10^3/uL MPV 10.6 (7.5-11.0) fL Gran % 52.6 (36.0-66.0) % Immature Gran % (Auto) 0.0 (0.00-0.4) % Nucleat RBC Rel Count 0.0 (0.00-0.1) % Eos # (Auto) 0.05 (0-0.5) x10^3/uL Immature Gran # (Auto) 0.00 (0.00-0.03) x10^3u/L Absolute Lymphs (auto) 1.18 (1.0-4.6) x10^3/uL Absolute Monos (auto) 0.43 (0.0-1.3) x10^3/uL Absolute Nucleated RBC 0.00 (0.00-0.01) x10^3u/L Lymphocytes % 33.3 (24.0-44.0) % Monocytes % 12.1 H (0.0-12.0) % Eosinophils % 1.4 (0.00-5.0) % Basophils % 0.6 (0.0-0.4) % Absolute Granulocytes 1.86 (1.4-6.9) x10^3/uL Basophils # 0.02 (0-0.4) x10^3/uL Sodium 136 L (137-145) mmol/L Potassium 3.6 (3.5-5.1) mmol/L Chloride 103 (98-107) mmol/L Carbon Dioxide 21 L (22-30) mmol/L Anion Gap 15.3 H (5-15) MEQ/L BUN 19 H (7-17) mg/dL Creatinine 0.57 (0.52-1.04) mg/dL Estimated GFR 117.7 ML/MIN Glucose 132 H (74-106) mg/dL Lactic Acid (0.4-2.0) Calcium 9.5 (8.4-10.2) mg/dL Total Bilirubin 0.90 (0.2-1.3) mg/dL AST 33 (14-36) U/L ALT 33 (0-35) U/L Alkaline Phosphatase 54 (38-126) U/L Serum Total Protein 7.8 (6.3-8.2) g/dL Albumin 4.2 (3.5-5.0) g/dL Amylase 100 (30-110) U/L Lipase 107 (23-300) U/L Urine Color Yellow (Yellow) Urine Appearance Clear (Clear) Urine pH 6.5 (4.6-8.0) Ur Specific Ford 1.010 (1.005-1.030) Urine Protein Negative (Negative) Urine Glucose (UA) Negative (Negative) mg/dL Urine Ketones Negative (Negative) Urine Blood Negative (Negative) Urine Nitrite Negative (Negative) Urine Bilirubin Negative (Negative) Urine Urobilinogen 1.0 A (0.2) mg/dL Ur Leukocyte Esterase Negative (Negative) U Hyaline Cast (Auto) NONE SEEN (0-2) /LPF Urine Microscopic RBC 0-2 (0-5) /HPF Urine Microscopic WBC 0-2 (0-5) /HPF Ur Epithelial Cells Rare (None Seen) /HPF Urine Bacteria None Seen (None Seen) /HPF Urine Culture Reflexed NO (NO) 04/29/23 Range/Units 17:13 WBC (4.0-10.5) x10^3/uL RBC (4.1-5.4) x10^6/uL Hgb (12.0-16.0) g/dL Hct (35-47) % MCV (78-100) fL MCH (26-32) pg MCHC (32-36) g/dL RDW (11.5-14.0) % Plt Count (150-450) x10^3/uL MPV (7.5-11.0) fL Gran % (36.0-66.0) % Immature Gran % (Auto) (0.00-0.4) % Nucleat RBC Rel Count (0.00-0.1) % Eos # (Auto) (0-0.5) x10^3/uL Immature Gran # (Auto) (0.00-0.03) x10^3u/L Absolute Lymphs (auto) (1.0-4.6) x10^3/uL Absolute Monos (auto) (0.0-1.3) x10^3/uL Absolute Nucleated RBC (0.00-0.01) x10^3u/L Lymphocytes % (24.0-44.0) % Monocytes % (0.0-12.0) % Eosinophils % (0.00-5.0) % Basophils % (0.0-0.4) % Absolute Granulocytes (1.4-6.9) x10^3/uL Basophils # (0-0.4) x10^3/uL Sodium (137-145) mmol/L Potassium (3.5-5.1) mmol/L Chloride (98-107) mmol/L Carbon Dioxide (22-30) mmol/L Anion Gap (5-15) MEQ/L BUN (7-17) mg/dL Creatinine (0.52-1.04) mg/dL Estimated GFR ML/MIN Glucose (74-106) mg/dL Lactic Acid 2.4 H (0.4-2.0) Calcium (8.4-10.2) mg/dL Total Bilirubin (0.2-1.3) mg/dL AST (14-36) U/L ALT (0-35) U/L Alkaline Phosphatase (38-126) U/L Serum Total Protein (6.3-8.2) g/dL Albumin (3.5-5.0) g/dL Amylase (30-110) U/L Lipase (23-300) U/L Urine Color (Yellow) Urine Appearance (Clear) Urine pH (4.6-8.0) Ur Specific Ford (1.005-1.030) Urine Protein (Negative) Urine Glucose (UA) (Negative) mg/dL Urine Ketones (Negative) Urine Blood (Negative) Urine Nitrite (Negative) Urine Bilirubin (Negative) Urine Urobilinogen (0.2) mg/dL Ur Leukocyte Esterase (Negative) U Hyaline Cast (Auto) (0-2) /LPF Urine Microscopic RBC (0-5) /HPF Urine Microscopic WBC (0-5) /HPF Ur Epithelial Cells (None Seen) /HPF Urine Bacteria (None Seen) /HPF Urine Culture Reflexed (NO) - Progress Progress: improved, re-examined Progress Note: 04/29/23 19:07 This patient's medical issue is 1 of moderate complexity. Level complex in the work-up performed is based on review of the patient's past medical history, review of the patient's medication list, review the patient's drug allergy list, history present illness and physical findings on examination. This patient's work-up includes placement of intravenous line, normal saline solution bolus, intravenous Solu-Medrol, intravenous Compazine, intravenous Dilaudid, CBC, CMP, urinalysis, CT of the head. 04/29/23 19:51 I reviewed and interpreted the laboratory data. There is no evidence of any acute, emergent abnormalities in the patient's lab work. CT scan of the head without contrast is a normal study. This was interpreted by the radiologist and I reviewed the interpretation. Counseled pt/family regarding: lab results, diagnosis, need for follow-up, rad results Medical Desision Making - Diagnostic Testing Diagnostic test were ordered, analyzed, and reviewed by me: Yes Radiological Interpretation: Reviewed by me, Teleradiologist Report - Risk of complications The pt has a mod risk of morbidity or mortality based on: Need for prescription drug management - Departure Departure Disposition: Home Clinical Impression: COVID-19 virus infection Condition: Stable Critical Care Time: No Referrals: BEL BURRELL [Primary Care Provider] - Follow up/PCP as directed Additional Instructions: Drink plenty of clear liquids. Take your steroids, hydrocodone elixir and Zofran medication as prescribed. Prescriptions: Ondansetron ODT 4 MG [Zofran Odt 4 mg] 4 mg PO Q6H PRN PRN #10 tablet PRN Reason: Vomiting Prednisone 10 mg [Deltasone 10 mg] 10 mg PO TID #12 tablet Hydrocodone/Acetaminophen [Hydrocodone-Acetamn 7.5-325/15] 10 ml PO Q8H PRN #120 ml MDD 30 ml PRN Reason: Cough
[2023-04-29] MEDS ORDERED: Sodium Chloride 0.9% 1000 ML 1,000 ML ONE ×2 (17:29→19:27)
[2023-04-29] MEDS ORDERED: Hydromorphone 1 mg/ml Injection ONE (17:29)
[2023-04-29] MEDS ORDERED: Compazine 10 MG/2 ML ONE (17:29)
[2023-04-29 17:42] LABS: Absolute Neutrophil Ct (ANC) 1.86 x10^3/uL (1.4-6.9); BASOPHIL % 0.6 % (0.0-0.4); Basophil (Absolute #) 0.02 x10^3/uL (0-0.4); Eosinophil % 1.4 % (0.00-5.0); Eosinophil (Absolute #) 0.05 x10^3/uL (0-0.5); Hematocrit 46.6 % (35-47); Hemoglobin 15.4 g/dL (12.0-16.0); Lymphocyte (Absolute #) 1.18 x10^3/uL (1.0-4.6); Lymphocytes % 33.3 % (24.0-44.0); Mean Cell Volume 89.6 fL (78-100); Mean Corpuscular Hemoglobin 29.6 pg (26-32); Mean Platelet Volume 10.6 fL (7.5-11.0); Monocyte (Absolute #) 0.43 x10^3/uL (0.0-1.3); Monocytes % 12.1 % (0.0-12.0); Neutrophil % 52.6 % (36.0-66.0); Platelet Count 206 x10^3/uL (150-450); Red Cell Distribution Width 11.6 % (11.5-14.0); White Blood Count 3.5 x10^3/uL (4.0-10.5)
[2023-04-29 17:57] LABS: ALBUMIN 4.2 g/dL (3.5-5.0); ANION GAP 15.3 MEQ/L (5-15); BILIRUBIN,TOTAL 0.9 mg/dL (0.2-1.3); Calcium 9.5 mg/dL (8.4-10.2); Creatinine 1 0.57 mg/dL (0.52-1.04); EST GLOMERULAR FILTRATION RATE 117.7 ML/MIN; Potassium 3.6 mmol/L (3.5-5.1); Total Protein 7.8 g/dL (6.3-8.2)
[2023-04-29 18:58] LABS: Appearance Clear (Clear); Bacteria None Seen /HPF (None Seen); Bilirubin Negative (Negative); Blood Negative (Negative); Epithelial Cells Rare /HPF (None Seen); Glucose, Urine Negative (Negative); Hyaline Casts NONE SEEN /LPF (0-2); Ketones Negative (Negative); Leukocyte Esterase Negative (Negative); Nitrite Negative (Negative); Ph 6.5 (4.6-8.0); Protein,Urine Dip Negative (Negative); RBC 0-2 /HPF (0-5); WBC 0-2 /HPF (0-5)
[2023-04-29] MEDS ORDERED: solu-MEDROL 125 MG, Sterile H2O 10 ml 2 ML IV ONE ×2 (19:01)
[2023-04-29 19:02] LABS: ADD URINE CULTURE? NO (NO)
[2023-04-29] MEDS ORDERED: Sterile H2O 10 ml IJ ONE (19:27)
[2023-04-29] MEDS ORDERED: solu-MEDROL ONE (19:27)
[2023-04-29 20:41] VITALS: RESP 15; O2SAT 98
[2023-04-29 22:03] VITALS: BP 104/68; PULSE 78
--- NOTE | 2023-04-30 08:37 | XRAY ---
Indication: Headache. Head injury. Positive Covid 19. Multiple contiguous axial images obtained through the head without contrast. Comparison: None Normal appearing brain parenchyma, ventricles, and bony calvarium. Visualized paranasal sinuses and mastoid air cells are clear. Impression: Normal CT head without contrast exam.
== END 2023-04-29 22:02 | disposition home or self-care (01) ==
LOC: ED 16:51
DX: U07.1 COVID-19 (principal); R53.1 Weakness; M79.10 Myalgia, unspecified site; R51.9 Headache, unspecified; R19.7 Diarrhea, unspecified; I10 Essential (primary) hypertension; Z79.52 Long term (current) use of systemic steroids; Z79.891 Long term (current) use of opiate analgesic; Z79.899 Other long term (current) drug therapy; Z28.310 Unvaccinated for COVID-19
CPT/HCPCS: 36000; 36415; 70450; 80053; 81001; 82150; 83605; 83690; 85025; 96360; 96361; 96374; 96375; 99284; J1170; J2930

== ENCOUNTER 2024-09-05 15:48 | Emergency (ER) | payer OTHER ==
[2024-09-05 16:11] VITALS: TEMP 96.9
--- NOTE | 2024-09-05 16:26 | ERPHSYRPT ---
- History of Present Illness Time Seen by Provider: 09/05/24 16:20 Source: patient Exam Limitations: no limitations Patient Subjective Stated Complaint: Chest pain Triage Nursing Assessment: Patient ambulated back to ED and transferred self to bed. Patient A+O X3. Patient's skin pink, warm and dry. Patient complains of chest pain to mid chest 4/10 intermittent tightness that started last night. Patient denies N/V. Lungs clear a/p beatris. Patient had went to PCP today due to swollen thumb on right hand and her B/P was elevated. PCP told her to come to ED for eval. Right hand, thumb noted to be red and swollen. Physician History: 44-year-old female presents to our ED as a referral from her primary care doctor for evaluation of chest tightness. Patient reports she has history of a PE. Patient states that she was following up with her PCP regarding thumb pain. Patient was observed to have elevated blood pressure. Patient told her PCP that she was experiencing some chest tightness and patient was sent to our ED for an evaluation. Patient currently has an order for a outpatient x-ray of her right thumb. Patient otherwise feels well. No associated shortness of breath. No nausea vomiting or diaphoresis. Patient voices no other complaints or concerns at this time. Portions of this note were created with voice recognition technology. There may be grammatical, spelling, punctuation or sound alike errors Timing/Duration: today Severity: moderate Modifying Factors: Improves With: nothing Associated Symptoms: denies symptoms Allergies/Adverse Reactions: alcohol [From Mastisol Adhesive] Allergy (Severe, Verified 09/05/24 16:00) gum mastic [From Mastisol Adhesive] Allergy (Severe, Verified 09/05/24 16:00) methyl salicylate [From Mastisol Adhesive] Allergy (Severe, Verified 09/05/24 16:00) peanut Allergy (Severe, Verified 09/05/24 16:00) shellfish derived Allergy (Severe, Verified 09/05/24 16:00) Anaphylactic Reaction storax [From Mastisol Adhesive] Allergy (Severe, Verified 09/05/24 16:00) vancomycin Allergy (Severe, Verified 09/05/24 16:00) Anaphylactic Reaction gluten Allergy (Intermediate, Verified 09/05/24 16:00) Hives Milk Containing Products (Dairy) [Milk Containing Products] Allergy (Intermediate, Verified 09/05/24 16:00) Hives tramadol Allergy (Verified 09/05/24 16:00) any type of peppers-vegetable Allergy (Severe, Uncoded 09/05/24 16:00) Anaphylactic Reaction Home Medications: Brexpiprazole [Rexulti] 1 mg PO DAILY 06/17/19 [History] Venlafaxine HCl [Venlafaxine HCl ER] 150 mg PO HS 06/17/19 [History] Zonisamide 200 mg PO HS 06/17/19 [History] Metoprolol Tartrate 50 mg [Lopressor 50 MG] 50 mg PO BID 04/29/23 [History] Hx Tetanus, Diphtheria Vaccination/Date Given: Yes Hx Influenza Vaccination/Date Given: No Hx Pneumococcal Vaccination/Date Given: No Immunizations Up to Date: Yes Travel Risk - International Travel Have you traveled outside of the country in past 3 weeks: No - Emerging Infectious Disease Are you exhibiting symptoms associated with any current EIDs: No - Review of Systems Constitutional: No Symptoms, No Fever, No Chills Eyes: No Symptoms Ears, Nose, & Throat: No Symptoms Respiratory: No Symptoms, No Cough, No Dyspnea Cardiac: No Symptoms, No Chest Pain, No Edema, No Syncope Abdominal/Gastrointestinal: No Symptoms, No Abdominal Pain, No Nausea, No Vomiting, No Diarrhea Genitourinary Symptoms: No Symptoms, No Dysuria Musculoskeletal: No Symptoms, No Back Pain, No Neck Pain Skin: No Symptoms, No Rash Neurological: No Symptoms, No Dizziness, No Focal Weakness, No Sensory Changes Psychological: No Symptoms Endocrine: No Symptoms Hematologic/Lymphatic: No Symptoms Immunological/Allergic: No Symptoms All Other Systems: Reviewed and Negative - Past Medical History Pertinent Past Medical History: Yes Neurological History: Migraines ENT History: No Pertinent History Cardiac History: Hypertension Respiratory History: No Pertinent History Endocrine Medical History: Hypothyroidism Musculoskeletal History: No Pertinent History GI Medical History: No Pertinent History, Irritable Bowel History: No Pertinent History Psycho-Social History: Depression Female Reproductive Disorders: No Pertinent History - Past Surgical History Past Surgical History: Yes Neuro Surgical History: No Pertinent History Cardiac: No Pertinent History Respiratory: No Pertinent History Gastrointestinal: Bowel Surgery, Appendectomy Genitourinary: No Pertinent History Musculoskeletal: No Pertinent History Female Surgical History: Hysterectomy Other Surgical History: small bowel repair after appy- states the small bowel was knicked and has to be repaired. Complex regional pain syndrome - Female History Hx Last Menstrual Period: total hysterectomy Hx Now: No - Social History Smoking Status: Former smoker Exposure to second hand smoke: No Drug Use: none - Social Determinants of Health Will the patient participate in the screening: Yes Do you worry about a steady place to live?: No Do you have any problems with any of the following?: No known problems In the past 12 months,have you had to go without utilities?: No Transportation Issues: No Has anyone in your support network made you feel unsafe?: No Have you or anyone in your house had to go w/o enough food: No - Nursing Vital Signs Nursing Vital Signs: Initial Vital Signs Pulse Rate 108 H 09/05/24 15:59 Respiratory Rate 11 L 09/05/24 15:59 Blood Pressure 142/103 09/05/24 15:59 O2 Sat by Pulse Oximetry 98 09/05/24 15:59 Pain Scale Pain Intensity 0 - Physical Exam General Appearance: no apparent distress, alert Eye Exam: PERRL/EOMI, eyes nml inspection Ears, Nose, Throat Exam: normal ENT inspection, moist mucous membranes Neck Exam: normal inspection, non-tender, supple, full range of motion Respiratory Exam: normal breath sounds, lungs clear, No respiratory distress Cardiovascular Exam: regular rate/rhythm, normal heart sounds, normal peripheral pulses Gastrointestinal/Abdomen Exam: soft, normal bowel sounds, No tenderness, No mass Back Exam: normal inspection, normal range of motion, No CVA tenderness, No vertebral tenderness Extremity Exam: normal inspection, normal range of motion, pelvis stable Neurologic Exam: alert, oriented x 3, cooperative, normal mood/affect, nml cerebellar function, nml station & gait, sensation nml, No motor deficits Skin Exam: normal color, warm, dry, No rash Lymphatic Exam: No adenopathy SpO2 Interpretation: normal SpO2: 100 O2 Delivery: Room Air - Course Nursing assessment & vital signs reviewed: Yes - Radiology Exams Chest X-ray Interpretation: Teleradiologist Report (Normal heart lungs and bony thorax) - CT Exams Chest CT Interpretation: Tele-radiologist Report (No PE. No acute findings) Ordered Tests: Active Orders 24 hr Category Date Time Status [employer] Management Specialist STAT Care 09/05/24 16:24 Active EKG-ER Only STAT Care 09/05/24 16:24 Active IV Insertion STAT Care 09/05/24 16:24 Active Pulse Oximetry (ED) STAT Care 09/05/24 16:24 Active CHEST 1 VIEW (PORTABLE) Stat Exams 09/05/24 16:24 Completed CHEST WITH CONTRAST [CT] Stat Exams 09/05/24 17:47 Taken HAND (MINIMUM 3 VIEWS) Stat Exams 09/05/24 17:54 Taken CBC W DIFF Stat Lab 09/05/24 16:45 Completed CMP Stat Lab 09/05/24 16:45 Completed D-DIMER QUANTITATIVE Stat Lab 09/05/24 16:45 Completed TROPONIN Q4H Lab 09/05/24 16:45 Completed TROPONIN Q4H Lab 09/05/24 19:53 Completed TROPONIN Q4H Lab 09/06/24 00:30 Ordered Medication Summary Discontinued Medications Generic Name Dose Route Start Last Admin Trade Name Freq PRN Reason Stop Dose Admin Acetaminophen 975 mg 09/05/24 17:48 09/05/24 17:50 Acetaminophen 325 Mg Tablet PO 09/05/24 17:49 975 mg STAT ONE Administration Acetaminophen Confirm 09/05/24 17:49 Acetaminophen 325 Mg Tablet Administered 09/05/24 17:50 Dose 975 mg .ROUTE .STK-MED ONE Lab/Rad Data: Laboratory Result Diagrams 09/05/24 16:45 09/05/24 16:45 Laboratory Results 09/05/24 09/05/24 09/05/24 Range/Units 19:53 16:45 16:45 WBC (3.98-10.04) x10^3/uL RBC (3.93-5.22) x10^6/uL Hgb (11.2-15.7) g/dL Hct (34.1-44.9) % MCV (79.4-94.8) fL MCH (25.6-32.2) pg MCHC (32.2-35.5) g/dL RDW (11.7-14.4) % Plt Count (182-369) x10^3/uL MPV (9.4-12.3) fL Gran % (34.0-71.1) % Immature Gran % (Auto) (0.001-0.429) % Nucleat RBC Rel Count (0.00-0.2) % Eos # (Auto) (0.04-0.36) x10^3/uL Immature Gran # (Auto) (0.001-0.031) x10^3u/L Absolute Lymphs (auto) (1.18-3.74) x10^3/uL Absolute Monos (auto) (0.24-0.86) x10^3/uL Absolute Nucleated RBC (0.00-0.012) x10^3u/L Lymphocytes % (19.3-51.7) % Monocytes % (4.7-12.5) % Eosinophils % (0.7-5.8) % Basophils % (0.1-1.2) % Absolute Granulocytes (1.56-6.13) x10^3/uL Basophils # (0.01-0.08) x10^3/uL D-Dimer 0.52 H (0.0-0.50) mg/L Sodium (135-145) mmol/L Potassium (3.5-5.1) mmol/L Chloride (98-107) mmol/L Carbon Dioxide (22-30) mmol/L Anion Gap (5-15) MEQ/L BUN (7-17) mg/dL Creatinine (0.52-1.04) mg/dL Estimated GFR ML/MIN Glucose (74-106) mg/dL Calcium (8.4-10.2) mg/dL Total Bilirubin (0.2-1.3) mg/dL AST (14-36) U/L ALT (0-35) U/L Alkaline Phosphatase (38-126) U/L Troponin I < 0.012 < 0.012 (0.000-0.033) ng/mL Serum Total Protein (6.3-8.2) g/dL Albumin (3.5-5.0) g/dL 09/05/24 09/05/24 Range/Units 16:45 16:45 WBC 4.9 (3.98-10.04) x10^3/uL RBC 4.41 (3.93-5.22) x10^6/uL Hgb 12.9 (11.2-15.7) g/dL Hct 37.9 (34.1-44.9) % MCV 85.9 (79.4-94.8) fL MCH 29.3 (25.6-32.2) pg MCHC 34.0 (32.2-35.5) g/dL RDW 12.0 (11.7-14.4) % Plt Count 239 (182-369) x10^3/uL MPV 9.8 (9.4-12.3) fL Gran % 62.0 (34.0-71.1) % Immature Gran % (Auto) 0.2 (0.001-0.429) % Nucleat RBC Rel Count 0.0 (0.00-0.2) % Eos # (Auto) 0.11 (0.04-0.36) x10^3/uL Immature Gran # (Auto) 0.01 (0.001-0.031) x10^3u/L Absolute Lymphs (auto) 1.27 (1.18-3.74) x10^3/uL Absolute Monos (auto) 0.42 (0.24-0.86) x10^3/uL Absolute Nucleated RBC 0.00 (0.00-0.012) x10^3u/L Lymphocytes % 26.0 (19.3-51.7) % Monocytes % 8.6 (4.7-12.5) % Eosinophils % 2.2 (0.7-5.8) % Basophils % 1.0 (0.1-1.2) % Absolute Granulocytes 3.03 (1.56-6.13) x10^3/uL Basophils # 0.05 (0.01-0.08) x10^3/uL D-Dimer (0.0-0.50) mg/L Sodium 140 (135-145) mmol/L Potassium 4.2 (3.5-5.1) mmol/L Chloride 104 (98-107) mmol/L Carbon Dioxide 26 (22-30) mmol/L Anion Gap 14.3 (5-15) MEQ/L BUN 13 (7-17) mg/dL Creatinine 0.56 (0.52-1.04) mg/dL Estimated GFR 116.8 ML/MIN Glucose 93 (74-106) mg/dL Calcium 9.8 (8.4-10.2) mg/dL Total Bilirubin 0.50 (0.2-1.3) mg/dL AST 33 (14-36) U/L ALT 30 (0-35) U/L Alkaline Phosphatase 64 (38-126) U/L Troponin I (0.000-0.033) ng/mL Serum Total Protein 7.0 (6.3-8.2) g/dL Albumin 4.4 (3.5-5.0) g/dL - Progress Progress: improved Progress Note: 44-year-old female presents to our ED as a referral from her primary care doctor for evaluation of chest pain. Patient's primary care doctor ordered an outpatient x-ray of her right thumb as it was sore. Patient requested that I do the x-ray in the ED while she was getting her workup. As a courtesy I ordered the thumb x-ray. I reviewed the thumb x-ray. No fracture or dislocation. Formal read pending. D-dimer positive. CTA chest negative for PE. Troponin negative x 2. Patient reassessed. Patient resting comfortably. No active pain or discomfort at this time. Patient states he is ready for discharge. Patient voices no other complaints or concerns at this time. She advises that she has a follow-up appointment scheduled with her primary care doctor on 25 September. Patient's heart score is 2 Of note patient's IV infiltrated towards the end of her PE study. The catheter was removed. We immediately applied warm compress. Patient states the pain has gradually improved. Patient's infiltrated area reassessed prior to discharge. The area appears to be well. Overlying soft tissue intact. The involved extremities neurovascular tact distally compartments are soft cap refill less than 2 seconds. Patient is a nurse. Patient reports that she knows and will continue to manage her infiltrated arm at home. Patient understands the indications to return to the ED. Patient voices no other complaints or concerns at this time. Portions of this note were created with voice recognition technology. There may be grammatical, spelling, punctuation or sound alike errors Complexity of problem addressed is moderate acute complicated. No critical care time. Complex of data reviewed and analyzed is moderate. Test ordered test reviewed results analyzed and correlated clinically with history and physical exam. Risk of complication and or risk of morbidity/mortality of patient management is low. Vital stable. Time spent to discharge patient is approximately 20 minutes. Plan of care established for shared decision making. No social determinants of health present to impede follow-up. Portions of this note were created with voice recognition technology. There may be grammatical, spelling, punctuation or sound alike errors 09/05/24 20:58 09/05/24 21:00 Counseled pt/family regarding: diagnosis, need for follow-up, rad results - Departure Departure Disposition: Home Clinical Impression: Chest pressure, Thumb pain, IV infiltration Condition: Stable Critical Care Time: No Referrals: BEL BURRELL [Primary Care Provider] - Follow up/PCP as directed Additional Instructions: Discharge/Care Plan LANCEELIZABETH NICHOLSON was seen on 09/05/24 in the Emergency Room. The patient was counseled regarding Diagnosis,Lab results, Imaging studies, need for follow up and when to return to the Emergency Room. Prescriptions given: Discharge Note I have spoken with the patient and/or caregivers. I have explained the patient's condition, diagnosis and treatment plan based on the information available to me at this time. I have answered the patient's and/or caregiver's questions and addressed any concerns. The patient and/or caregivers have as good understanding of the patient's diagnosis, condition and treatment plan as can be expected at this point. The vital signs have been stable. The patient's condition is stable and appropriate for discharge from the emergency department. The patient will pursue further outpatient evaluation with the primary care physician or other designated or consulting physician as outlined in the discharge instructions. The patient and/or caregivers are agreeable to this plan of care and follow-up instructions have been explained in detail. The patient and/or caregivers have received these instruction. The patient/and or caregivers are aware that any significant change in condition or worsening of symptoms should prompt an immediate return to this or the closest emergency department or call 911.
[2024-09-05 16:50] LABS: Absolute Neutrophil Ct (ANC) 3.03 x10^3/uL (1.56-6.13); Basophil (Absolute #) 0.05 x10^3/uL (0.01-0.08); Eosinophil % 2.2 % (0.7-5.8); Eosinophil (Absolute #) 0.11 x10^3/uL (0.04-0.36); Hematocrit 37.9 % (34.1-44.9); Hemoglobin 12.9 g/dL (11.2-15.7); IMMATURE GRAN # 0.01 x10^3u/L (0.001-0.031); IMMATURE GRAN % 0.2 % (0.001-0.429); Lymphocyte (Absolute #) 1.27 x10^3/uL (1.18-3.74); Mean Cell Volume 85.9 fL (79.4-94.8); Mean Corpuscular Hemoglobin 29.3 pg (25.6-32.2); Mean Platelet Volume 9.8 fL (9.4-12.3); Monocyte (Absolute #) 0.42 x10^3/uL (0.24-0.86); Monocytes % 8.6 % (4.7-12.5); Platelet Count 239 x10^3/uL (182-369); Red Blood Count 4.41 x10^6/uL (3.93-5.22); White Blood Count 4.9 x10^3/uL (3.98-10.04)
--- NOTE | 2024-09-05 16:53 | XRAY ---
Indication: Chest pain. Comparison: September 03, 2023 Portable chest again demonstrates normal heart, lungs, and bony thorax with incidental bilateral breast implants.
[2024-09-05 17:03] LABS: ALBUMIN 4.4 g/dL (3.5-5.0); ANION GAP 14.3 MEQ/L (5-15); BILIRUBIN,TOTAL 0.5 mg/dL (0.2-1.3); Calcium 9.8 mg/dL (8.4-10.2); Creatinine 1 0.56 mg/dL (0.52-1.04); EST GLOMERULAR FILTRATION RATE 116.8 ML/MIN; Potassium 4.2 mmol/L (3.5-5.1)
[2024-09-05] MEDS ORDERED: TYLENOL 325 MG ONE (17:49)
[2024-09-05] MEDS: TYLENOL 325 MG PO ONE (17:50)
[2024-09-05 20:44] VITALS: O2SAT 100
[2024-09-05 20:53] VITALS: BP 110/73; PULSE 86; RESP 17
--- NOTE | 2024-09-06 08:47 | XRAY ---
Indication: Pain. Elevated d-dimer. Multiple contiguous axial images obtained through the chest using 80 cc Isovue 370 contrast and PE protocol. Comparison: None Good opacification pulmonary arteries to include the lobar and segmental branches. No pulmonary embolus. Heart is not enlarged. Aorta is normal in course and caliber. No pathologic mediastinal/hilar lymphadenopathy. Lungs inflated and clear with incidental tiny left lower lobe calcified granuloma. Bony thorax intact with minimal dextroscoliosis. Incidental bilateral breast implants. Limited upper abdomen demonstrates 1.1 cm left lobe hepatic cyst versus hemangioma. Impression: 1. Negative pulmonary embolus. No acute cardiopulmonary abnormalities. 2. Incidental small hepatic cyst versus hemangioma, dextroscoliosis, and left lower lobe calcified granuloma.
--- NOTE | 2024-09-06 08:53 | XRAY ---
Indication: Thumb swelling. Comparison: None 3 view right hand obtained. No bony, articular, or soft tissue abnormalities.
== END 2024-09-05 21:08 | disposition home or self-care (01) ==
LOC: ED 15:48
DX: R07.9 Chest pain, unspecified (principal); M79.644 Pain in right finger(s); T80.89XA Other complications following infusion, transfusion and therapeutic injection, initial encounter; M25.522 Pain in left elbow; I10 Essential (primary) hypertension; Z79.899 Other long term (current) drug therapy
CPT/HCPCS: 36415; 71045; 71260; 73130; 80053; 84484; 85025; 85379; 93005; 93041; 94760; 99285; A9270-GY